=== PATIENT | female | born 1940 | race Caucasian/White ===

== ENCOUNTER 2016-06-27 22:38 | Inpatient (IN) | payer OTHER ==
[~2016-06-27] VITALS: Ht 165.1 cm; Wt 60.8 kg
--- NOTE | 2016-06-27 22:48 | NUR ---
PER PT STARTED VOMITING LAST NIGHT, APPEARS VERY UNCOMF IN TRIAGE, TACHYPNEIC REPORTS DOES NOT FEEL WELL. HAD 3 BM MOVEMENTS , LOTS OF VOMITING
--- NOTE | 2016-06-27 22:54 | ED GI/GU/ABDOMINAL COMPLAINT ---
History of Present Illness General Chief Complaint: Nausea, Vomiting, Diarrhea Stated Complaint: NVD Source: patient, family Exam Limitations: no limitations Vital Signs & Intake/Output Vital Signs & Intake/Output Vital Signs Date Time Temp Pulse Resp B/P Pulse O2 O2 Flow FiO2 Ox Delivery Rate 06/27 2337 Room Air 06/27 2249 98.3 60 28 162/78 97 Room Air ED Intake and Output 06/28 0000 06/27 1200 Intake Total 1000 Output Total Balance 1000 Intake, IV 1000 Allergies Coded Allergies: No Known Allergies (06/27/16) Reconcile Medications No Known Home Medications Triage Note: PER PT STARTED VOMITING LAST NIGHT, APPEARS VERY UNCOMF IN TRIAGE, TACHYPNEIC REPORTS DOES NOT FEEL WELL. HAD 3 BM MOVEMENTS , LOTS OF VOMITING Triage Nurses Notes Reviewed? yes ? n Is pt currently ? No Onset: Gradual Duration: day(s):, waxing and waning Quality/Severity: cramping Location: generalized abdomen Radiation: no radiation Activities at Onset: none Prior Abdominal Problems: none Modifying Factors: Worsens With: vomiting. Associated Symptoms: abdominal pain, nausea/vomiting HPI: 75-year-old woman in prior good health presents with vomiting since 3 AM. She notes that she feels nauseous. She had a few episodes of mild diarrhea. She states that she has no significant abdominal pain. She states, "I've been vomiting uncontrollably and can't keep anything down." She noted mild dysuria but no polyuria. She is otherwise well and has no chest pain shortness of breath fever or syncopal symptoms. Past History Travel History Traveled to [place] past 21 day No Medical History Any Pertinent Medical History? see below for history Neurological: NONE EENT: NONE Cardiovascular: hypertension Respiratory: NONE Gastrointestinal: NONE Hepatic: NONE Renal: KIDNEY SURG 2002 Musculoskeletal: NONE Psychiatric: NONE Endocrine: NONE Blood Disorders: NONE Surgical History Surgical History: hysterectomy, nephrectomy Psychosocial History What is your primary language Syriac Tobacco Use: Never used Family History Hx Contributory? No Review of Systems Review of Systems Constitutional: Reports: no symptoms. EENTM: Reports: no symptoms. Respiratory: Reports: no symptoms. Cardiovascular: Reports: no symptoms. GI: Reports: no symptoms. Genitourinary: Reports: no symptoms. Musculoskeletal: Reports: no symptoms. Skin: Reports: no symptoms. Neurological/Psychological: Reports: no symptoms. Hematologic/Endocrine: Reports: no symptoms. Immunologic/Allergic: Reports: no symptoms. All Other Systems: Reviewed and Negative Physical Exam Physical Exam General Appearance: well developed/nourished, mild distress, moderate distress Head: atraumatic, normal appearance Eyes: Bilateral: normal appearance. Ears, Nose, Throat, Mouth: hearing grossly normal Neck: normal inspection, supple, full range of motion Respiratory: normal breath sounds, chest non-tender, no respiratory distress, quiet respiration, lungs clear Cardiovascular: regular rate/rhythm Gastrointestinal: normal bowel sounds, soft, non-tender, no organomegaly Back: normal inspection Extremities: normal range of motion Neurologic/Psych: no motor/sensory deficits, awake, alert, oriented x 3 Core Measures ACS in differential dx? No Severe Sepsis Present: No Septic Shock Present: No Progress Differential Diagnosis: suction versus gastroenteritis versus GERD versus ulcers versus other. Plan of Care: Orders Procedure Date/time Status Nothing by Mouth 06/28 B Active LACTIC ACID 06/28 0158 Active Patient Data 06/28 0047 Active Add-on Test (ER Only) 06/28 0045 Active Saline Lock 06/28 0020 Active Misc Message 06/28 0020 Active ED Holding Orders 06/28 0020 Active Vital Signs 06/28 0020 Active Code Status 06/28 0020 Active Admit to inpatient 06/28 0019 Active URINE OSMOLALITY 06/28 0010 Active URINE LYTES, SPOT 06/28 0010 Active Intake & Output 06/27 2315 Active SERUM OSMOLALITY 06/27 2305 Active URINALYSIS 06/27 2258 Complete PARTIAL THROMBOPLASTIN TIME 06/27 2258 Complete PROTHROMBIN TIME 06/27 2258 Complete LACTIC ACID 06/27 2258 Complete TROPONIN LEVEL 06/27 224 Active LIPASE 06/27 2245 Active HEPATIC FUNCTION PANEL 06/27 2245 Active CBC WITHOUT DIFFERENTIAL 06/27 2244 Complete BASIC METABOLIC PANEL 06/27 224 Active AMYLASE 06/27 2245 Active EKG 06/27 2245 Active Laboratory Tests 06/28/16 0010: Urine Color YEL, Urine Clarity CLDY H, Urine pH 7.5, Ur Specific [place] 1.015, Urine Protein NEG, Urine Ketones 40 H, Urine Nitrite POS H, Urine Bilirubin NEG, Urine Urobilinogen 0.2, Ur Leukocyte Esterase MOD H, Ur Microscopic SEDIMENT EXAMINED, Urine RBC 5-10 H, Urine WBC 5-10 H, Ur Epithelial Cells FEW , Urine Hemoglobin MOD H, Urine Glucose NEG 06/28/16 0010: Urine Osmolality Pending, Ur Random Creatinine Pending, Ur Random Sodium Pending , Ur Random Potassium Pending, Fraction Sodium Excret Pending 06/27/16 2305: Lactic Acid 1.7 06/27/16 2305: Anion Gap 13, Estimated GFR > 60, BUN/Creatinine Ratio 18.6, Glucose 126 H, Serum Osmolality Pending, Calcium 10.6 H, Total Bilirubin 2.3 H, Direct Bilirubin 0.3, AST 34, ALT 33, Alkaline Phosphatase 98, Troponin I < 0.01, Total Protein 6.6, Albumin 4.3, Amylase 71, Lipase 153, PT 12.4, INR 1.18, APTT 30, CBC w Diff MAN DIFF ORDERED, RBC 4.55, MCV 86.0, MCH 29.6, RDW 14.0, MPV 9.2, Gran % 88.7 H, Lymphocytes % 7.5 L, Monocytes % 1.9, Eosinophils % 0, Basophils % 1.9, Absolute Granulocytes 8.4 H, Absolute Lymphocytes 0.7 L, Absolute Monocytes 0.2, Absolute Eosinophils 0, Absolute Basophils 0.2, Platelet Estimate ADEQUATE, Normocytic RBCs VERIFIED, Normochromic RBCs VERIFIED, PUBS MCHC 34.4 Diagnostic Imaging: Viewed by Me: CT Scan. Discussed w/RAD: CT Scan. Radiology Impression: abd/pelvic ct... no acute disease... full report below. Initial ED EKG: normal axis, normal intervals, normal p-waves, normal QRS complex, normal sinus rhythm Comments: PATIENT: JEFFREY MEYER PRESENT AGE: 75 PATIENT ACCOUNT NO: [id number] : 39 LOCATION: [facility] ORDERING PHYSICIAN: ERIN CHERY MD SERVICE DATE: 06/27/16 EXAM TYPE: CAT - CT ABD & PELVIS W/O IV CONTRAS EXAMINATION: CT ABDOMEN AND PELVIS WITHOUT CONTRAST CLINICAL INFORMATION: Abdominal pain, vomiting COMPARISON: None TECHNIQUE: Multidetector volumetric imaging was performed from the superior aspect of the liver through the pubic symphysis. Sagittal and coronal reformatted images were obtained on the technologist's workstation. DLP: 239.5 to mGy-cm FINDINGS: LUNG BASES: Lung bases demonstrate curvilinear atelectasis. LIVER, GALLBLADDER, AND BILIARY TREE: The liver is normal in size, shape, and attenuation. There is a 2.4 cm inferior right hepatic cyst. A subcentimeter hypodense lesion at the dome of the right hepatic lobe is too small to characterize. No biliary ductal dilatation is present. The gallbladder is unremarkable with no evidence of radiopaque gallstones, gallbladder wall thickening, or obvious pericholecystic inflammatory changes. PANCREAS: Unremarkable. SPLEEN: Enlarged, measuring approximately 15 cm in craniocaudal dimension. ADRENAL GLANDS: Unremarkable. KIDNEYS AND URETERS: Patient is status post left nephrectomy. The right kidney appears unremarkable, without hydronephrosis or obstructing calculus. BLADDER: Unremarkable. GASTROINTESTINAL TRACT: Colonic diverticulosis is noted. The small and large bowel are otherwise unremarkable without evidence of obstruction or pericolonic inflammatory change. The appendix appears nondilated. ABDOMINAL WALL: No significant hernia is appreciated. LYMPH NODES: No lymphadenopathy is seen, though assessment is somewhat limited in the absence of intravenous contrast. VASCULAR: There is atherosclerotic calcification along the aorta and iliac arteries. PELVIC VISCERA: Patient appears status post hysterectomy. OSSEOUS STRUCTURES: Mild degenerative changes are present in the spine. IMPRESSION: 1. No acute findings identified in the abdomen/pelvis. 2. Splenomegaly. 3. Status post left nephrectomy. 4. Colonic diverticulosis. DICTATED BY: PRADEEP JOSE MD DATE/TIME DICTATED:06/27/162353 CLINICAL EXERCISE SPECIALIST:JORGE DATE/TIME TRANSCRIBED:06/27/162353 CONFIDENTIAL, DO NOT COPY WITHOUT APPROPRIATE AUTHORIZATION. <Electronically signed in Other Vendor System> SIGNED BY: PRADEEP JOSE MD 06/28/16 0010 Departure Departure Disposition: STILL A PATIENT Condition: Stable Clinical Impression Primary Impression: Abdominal pain Secondary Impressions: Hyponatremia, Nausea and vomiting Referrals: PATIENT HAS NO PRIMARY CARE DR (PCP/Family) Departure Forms: Customer Survey General Discharge Information Prescriptions: Current Visit Scripts No Known Home Medications Admission Note Spoke With: CYRUS CERVANTES MD Documentation of Exam: Documentation of any treatments & extenuating circumstances including Concerns Regarding Discharge (functional status, medication knowledge or non-compliance, living conditions, etc.) that warrant an admission rather than observation: Patient with nausea vomiting most likely due to viral syndrome. Awaiting urinalysis. Sodium of 119 with a low chloride consistent with hypovolemic hyponatremia. Patient merits admission for IV fluids and electrolyte correction. Critical Care Note Critical Care Note Critical Care Time: 30-74 min
--- NOTE | 2016-06-27 22:55 | NUR ---
APPRECIATED TRIAGE NOTE, PT TO ROOM 4
[2016-06-27 23:13] LABS: ABSOLUTE BASOPHIL COUNT 0.2 /CUMM (0.0-0.2); ABSOLUTE EOSINOPHIL COUNT 0 /CUMM (0.0-0.7); ABSOLUTE GRANULOCYTE CT 8.4 /CUMM (1.4-6.5); ABSOLUTE LYMPH COUNT 0.7 /CUMM (1.2-3.4); ABSOLUTE MONOCYTE COUNT 0.2 /CUMM (0.10-0.60); BASOPHIL % 1.9 % (0.0-2.0); EOSINOPHIL % 0 % (0-5); GRANULOCYTE % 88.7 % (42.2-75.2); HEMATOCRIT 39.2 % (37-47); MEAN CORPUSCULAR HGB 29.6 PG (27.0-31.0); MEAN CORPUSCULAR HGB CONC 34.4 G/DL (33.0-37.0); MEAN PLATELET VOLUME 9.2 FL (7.4-10.4); PLATELET COUNT 164 /CUMM (130-400); RED BLOOD CELL CT 4.55 /CUMM (4.20-5.40); WHITE BLOOD CELL COUNT 9.5 /CUMM (4.8-10.8)
--- NOTE | 2016-06-27 23:14 | NUR ---
IV ESTABLISHED #20 RAC. NS LITER #1 INFUSING NOW. MEDICATED WITH ZOFRAN PER ORDER (SEE EMAR).
[2016-06-27 23:22] LABS: PT 12.4 SEC (9.4-12.5); PTT 30 SEC (25-37)
--- NOTE | 2016-06-27 23:22 | NUR ---
PT MEDICATED WITH PROTONIX WELL PER EMAR. PT LESS TREMULOUS NOW. APPEARS MORE COMFORTABLE. DENIES NAUSEA.
--- NOTE | 2016-06-27 23:37 | NUR ---
PT TO CAT SCAN VIA STRETCHER
--- NOTE | 2016-06-27 23:50 | NUR ---
CRITICAL TEST RESULTS [id number] JEFFREY MEYER 75 F TESTS AND RESULTS: SODIUM 119 Results received and read back by: STANLEY SHER Results received date and time: 06/27/16 0200 The following provider was notified of the results, and read the results back: Notified date and time: 06/27/16 at 2350
--- NOTE | 2016-06-28 00:08 | NUR ---
PT BACK FROM CAT SCAN
--- NOTE | 2016-06-28 00:10 | CT SCAN REPORT ---
EXAMINATION: CT ABDOMEN AND PELVIS WITHOUT CONTRAST CLINICAL INFORMATION: Abdominal pain, vomiting COMPARISON: None TECHNIQUE: Multidetector volumetric imaging was performed from the superior aspect of the liver through the pubic symphysis. Sagittal and coronal reformatted images were obtained on the technologist's workstation. DLP: 239.5 to mGy-cm FINDINGS: LUNG BASES: Lung bases demonstrate curvilinear atelectasis. LIVER, GALLBLADDER, AND BILIARY TREE: The liver is normal in size, shape, and attenuation. There is a 2.4 cm inferior right hepatic cyst. A subcentimeter hypodense lesion at the dome of the right hepatic lobe is too small to characterize. No biliary ductal dilatation is present. The gallbladder is unremarkable with no evidence of radiopaque gallstones, gallbladder wall thickening, or obvious pericholecystic inflammatory changes. PANCREAS: Unremarkable. SPLEEN: Enlarged, measuring approximately 15 cm in craniocaudal dimension. ADRENAL GLANDS: Unremarkable. KIDNEYS AND URETERS: Patient is status post left nephrectomy. The right kidney appears unremarkable, without hydronephrosis or obstructing calculus. BLADDER: Unremarkable. GASTROINTESTINAL TRACT: Colonic diverticulosis is noted. The small and large bowel are otherwise unremarkable without evidence of obstruction or pericolonic inflammatory change. The appendix appears nondilated. ABDOMINAL WALL: No significant hernia is appreciated. LYMPH NODES: No lymphadenopathy is seen, though assessment is somewhat limited in the absence of intravenous contrast. VASCULAR: There is atherosclerotic calcification along the aorta and iliac arteries. PELVIC VISCERA: Patient appears status post hysterectomy. OSSEOUS STRUCTURES: Mild degenerative changes are present in the spine. IMPRESSION: 1. No acute findings identified in the abdomen/pelvis. 2. Splenomegaly. 3. Status post left nephrectomy. 4. Colonic diverticulosis.
--- NOTE | 2016-06-28 00:14 | NUR ---
URINE SAMPLE SENT TO LAB
--- NOTE | 2016-06-28 00:58 | History & Physical ---
TIERRA WEAVER,FER 06/28/16 0057: General Information and HPI MD Statement: I have seen and personally examined JEFFREY MEYER and documented this H&P. The patient is a 75 year old F who presented with a patient stated chief complaint of [throwing up, diarrhea and I only have one kidney]. Source of Information: patient History of Present Illness: Patient is a 75 old pleasant lady who was brought into the ED by her neighbor due to several episode of vomiting and diarrhea for two days. Patient reported eating left over food (marinara sauce with pasta) the night before. Vomiting was associated with cramping and feeling 'edginess' on the upper left and right abdomen but denies any abdominal pain. Reports blood in the vomit, and appeared as dark and old blood. Patient had 3-4 more episodes of vomiting afterwards but those were clear without blood. Denies having such episode of extensive vomiting in the past. Denies heartburn but reports frequent hiccups. Patient denies fever, reported chills earlier in the ED which is now resolved. She also reports one episode of noticing blood in the urine on Tuesday morning which was resolved. Patient reports she has generalized weakness, denies SOB, chest pain, palpitations. she has had poor oral intake over the past few days. Her PMH is significant for nephrectomy (with Dx of RCC in 2011). On note, patient was prescribed amoxicillin about 3 months ago for a dental procedure. She requires dental procedures almost 3-4 times a year and every time he receives antibiotics prophylactically. Allergies/Medications Allergies: Coded Allergies: No Known Allergies (06/27/16) Home Med list Aspirin (Aspirin*) 325 MG TABLET 1 TAB PO DAILY HEART (Reported) Atenolol 25 MG TABLET 1 TAB PO DAILY BLOOD PRESSURE (Reported) Atorvastatin Calcium (Lipitor) 20 MG TABLET 1 TAB PO DAILY CHOLESTEROL ( Reported) Benazepril/Hydrochlorothiazide (Benazepril-Hctz 20-12.5 MG Tab) 20 MG-12.5 MG TABLET 1 TAB PO DAILY BLOOD PRESSURE (Reported) Past History Travel History Traveled to [place] past 21 day No Medical History Neurological: NONE EENT: NONE Cardiovascular: hypertension Respiratory: NONE Gastrointestinal: NONE Hepatic: NONE Renal: left nephrectomy 2011 Musculoskeletal: NONE Psychiatric: NONE Endocrine: NONE Blood Disorders: NONE Surgical History Surgical History: hysterectomy, nephrectomy, left side Past Family/Social History Psychosocial History Where do you live? Home Who Do You Live With? self Services at Home: None Primary Language: Malaysian Smoking Status: Never Smoked ETOH Use: occasional use Functional Ability ADLs Independent: dressing, eating, toileting, bathing. Ambulation: independent IADLs Independent: shopping, housework, finances, food prep, telephone, transportation , medication admin. Review of Systems Review of Systems Constitutional: Reports: chills, malaise, weakness. Denies: fever. EENTM: Reports: no symptoms. Cardiovascular: Denies: chest pain, palpitations, peripheral edema, syncope. Respiratory: Denies: cough, short of breath, sputum production, wheezing. GI: Reports: diarrhea, nausea, bloody stool, vomiting. Denies: abdominal pain, melena. Genitourinary: Reports: dysuria, frequency, hematuria. Denies: pain. Musculoskeletal: Denies: back pain, joint pain, joint swelling. Skin: Reports: no symptoms. Neurological/Psychological: Reports: confusion. Denies: headache, numbness, weakness (feels being spaced out). Hematologic/Endocrine: Reports: no symptoms. Exam & Diagnostic Data Last 24 Hrs of Vital Signs/I&O Vital Signs Date Time Temp Pulse Resp B/P Pulse O2 O2 Flow FiO2 Ox Delivery Rate 06/28 0300 98.7 53 20 128/56 97 Room Air 06/28 0145 98.5 66 20 148/72 98 Room Air 06/27 2337 Room Air 06/27 2249 98.3 60 28 162/78 97 Room Air Intake & Output 06/28 0800 06/28 0000 06/27 1600 Intake Total 1000 Output Total Balance 1000 Intake, IV 1000 Physical Exam General Appearance Alert, Oriented X3, Cooperative, No Acute Distress, slightly confused and forgetful Skin No Rashes, No Breakdown, No Significant Lesion HEENT Atraumatic, PERRLA, EOMI, dry mucous membranes Neck Supple, No JVD Cardiovascular Regular Rate, Normal S1, Normal S2 Lungs Clear to Auscultation, Normal Air Movement Abdomen Normal Bowel Sounds, Soft, No Tenderness Neurological Normal Speech, Strength at 5/5 X4 Ext, Normal Tone, Sensation Intact, Cranial Nerves 3-12 NL Extremities No Clubbing, No Cyanosis, No Edema, Normal Pulses Vascular Normal Pulses, Pulses Symmetrical Last 24 Hrs of Labs/Fredrick: Laboratory Tests 06/28/16 0600: PTH Intact Cancelled 06/28/16 0340: Anion Gap 6, Estimated GFR > 60, BUN/Creatinine Ratio 15.7, TSH 0.775, Free T4 1.05, PTH Intact 144.4 H 06/28/16 0136: Lactic Acid 0.9 06/28/16 001: Urine Color YEL, Urine Clarity CLDY H, Urine pH 7.5, Ur Specific [place] 1.015, Urine Protein NEG, Urine Ketones 40 H, Urine Nitrite POS H, Urine Bilirubin NEG, Urine Urobilinogen 0.2, Ur Leukocyte Esterase MOD H, Ur Microscopic SEDIMENT EXAMINED, Urine RBC 5-10 H, Urine WBC 5-10 H, Ur Epithelial Cells FEW , Urine Hemoglobin MOD H, Urine Glucose NEG 06/28/16 0010: Urine Osmolality 528, Ur Random Creatinine 67.4, Ur Random Sodium 66, Ur Random Potassium 123.5, Fraction Sodium Excret 0.6 06/27/16 2305: Lactic Acid 1.7 06/27/16 2305: Anion Gap 13, Estimated GFR > 60, BUN/Creatinine Ratio 18.6, Glucose 126 H, Serum Osmolality 256 L, Calcium 10.6 H, Total Bilirubin 2.3 H, Direct Bilirubin 0.3, AST 34, ALT 33, Alkaline Phosphatase 98, Troponin I < 0.01, Total Protein 6.6, Albumin 4.3, Amylase 71, Lipase 153, 25-OH Vitamin D Total 22.9 L, PTH Intact 122.8 H, PT 12.4, INR 1.18, APTT 30, CBC w Diff MAN DIFF ORDERED, RBC 4.55, MCV 86.0, MCH 29.6, RDW 14.0, MPV 9.2, Gran % 88.7 H, Lymphocytes % 7.5 L, Monocytes % 1.9, Eosinophils % 0, Basophils % 1.9, Absolute Granulocytes 8.4 H, Absolute Lymphocytes 0.7 L, Absolute Monocytes 0.2, Absolute Eosinophils 0, Absolute Basophils 0.2, Platelet Estimate ADEQUATE, Normocytic RBCs VERIFIED, Normochromic RBCs VERIFIED, PUBS MCHC 34.4 Microbiology 06/28 022 STOOL: Clostridium difficile Toxin A & B - COLB 06/28 014 BLOOD: Blood Culture - RECD 06/28 135 BLOOD: Blood Culture - RECD 06/28 9 URINE ROUT: Urine Culture - RECD Assessment/Plan Assessment: Patient is a 75-year-old lady with PMS significant for left RCC and nephrectomy in 2011, hypertension hyperlipidemia, hysterectomy, who has come to the ED due to acute onset nausea vomiting and diarrhea. Patient also has noticed blood in the vomit as well as blood in the urine, dysuria and frequency. Workup in the ED showed profound hyponatremia of 119, elevated calcium of 10.6, elevated total bilirubin of 2.3 with normal direct bilirubin, elevated PTH. UA is positive for ketones, nitrite, leukocyte esterase, RBCs, white BCs, hemoglobin. Problem list and plan: Hyponatremia Possibly due to GI loss as well as chronic diuretic use. Patient appeared hypothalamic on admission. urine osmolality is elevated however not reliable as the patient is on HCTZ. However patient has not responded to IV normal saline, therefore SIADH needs to be ruled out. * Check orthostats * Continue monitoring sodium every 4 hours * Continue IV normal saline * Follow-up endocrinology consult in a.m. * Follow-up nephrology consult in a.m. Nausea and vomiting and Diarrhea Possible etiologies: infective gastroenteritis (due to food poisoning), C-diff colitis secondary to antibiotic use. * IV fluids * Check stool for C. difficile, stool guaiac * Zofran for nausea UTI Patient reported hematuria, dysuria and frequency. UA indicates UTI. Negative CVA tenderness. Only one episode of chills but no fever, sent blood cultures. * Urine culture * IV ceftriaxone * Sent blood cultures Hypercalcemia and elevated PTH Etiology can be primary hyperparathyroidism * IV fluids * Repeat PTH * Measure 25 hydroxy vitamin D * Follow-up Endo consult Hyperbilirubinemia Possibly due to vomiting. * Repeat LFT in a.m. Diet * Regular DVT prophylaxis * Subcutaneous Lovenox Full code As Ranked By This Provider Problem List: 1. Abdominal pain 2. Nausea and vomiting 3. Hyponatremia Core Measures/Miscellaneous Acute Coronary Syndrome ACS Diagnosis: No Cerebrovascular Accident CVA/TIA Diagnosis: No Congestive Heart Failure CHF Diagnosis: No Venous Thromboembolism VTE Risk Factors: Acute medical illness, Age > 40 VTE Prophylaxis Ordered Inpt: Pharm- Lovenox No Mech VTE prophylaxis d/t: No contraindications No VTE Pharm Prophylaxis d/t: No contraindications VTE Diagnosis: No VTE Type: NONE VTE Confirmed by (Test): NONE Severe Sepsis Severe Sepsis Present: No Septic Shock Septic Shock Present: No Miscellaneous Documentation Attending Case Discussed With: CYRUS CERVANTES MD Primary Care Physician: PATIENT HAS NO PRIMARY CARE DR Patient sees these Specialists Dr. Lynda Rogers, assistant professor in family studies Dr. Jacek Dean, urologist Level of Patient Care: General Medicine GHADA JHAVERI 06/28/16 0300: Resident Review Statement Resident Statement: examined this patient, discussed with tax intern, agreed with tax intern Other Findings: Patient is 75-year-old female with past medical history significant for hypertension, hyperlipidemia, mitral valve repair, history of renal cell carcinoma status post left nephrectomy in 2011 came with chief complaint of nausea or vomiting and diarrhea with weakness since yesterday. Patient admits that she start having nausea and vomiting on Tuesday morning along with 2 episodes of diarrhea resulting dehydration and weakness. She also experiencing some urinary symptoms including burning urination and frequency. She noticed slight hematuria and questionable blood in vomitus also. She denies fever, chills, chest pain, palpitations, dizziness, gait instability but admits that she was spacing out yesterday. She lives at home by herself and is independent in her living room. She is following with assistant professor in family studies Dr. Lynda Rogers and payroll master Dr. Jacek Dean at [facility]. Her vital signs on admission were temperature 98.3, pulse 60, respiratory rate 28, that pressure 162/78 and she was saturating 97% on room air. Admission labs were white cell count 9.5, hemoglobin 13.5, hematocrit 39.2, platelet 164, sodium 119, potassium 3.7, BUN/creatinine 13, creatinine 0.7, calcium 10.6 and corrected 10.4, bilirubin 2.3 with normal AST and ALTs, initial PTH was 122.8 and repeat was 144.4. UA was positive for leukocyte esterase, nitrates, WBC count of 5-10 and RBC 5-10 with moderate hemoglobin Physical examination Alert and oriented but anxious more than confused at times Dry mucous membranes Head atraumatic Neck supple Chest clear to auscultate Heart S1-S2 normal with no added sounds Abdomen soft with normal bowel sounds Extremities no edema or cyanosis Neurological examination negative for any neurological deficit Assessment and plan Patient is 75-year-old female with past medical history significant for hypertension, hyperlipidemia, renal cell carcinoma status post left nephrectomy, mitral valve repair came with chief complaint of diarrhea, vomiting resulted to dehydration and found to be severely hyponatremic on admission labs. Problem list 1. Severe hyponatremia without profound confusion 2. Hyperbilirubinemia 3. History of hypertension and hyper lipidemia 4. Elevated calcium with elevated parathyroid hormone most primary hyperparathyroidism needs to be ruled out 5. UTI with positive urinalysis and symptoms Plan We will admit patient on general medical floor Patient is hypovolemic/dehydrated on clinical examination, low serum osmolality as well as sodium excretion of 66 on urine lites and fraction sodium excretion is 0.6, recent diarrhea and vomiting on diuretics most likely due to renal losses and also GI losses. We will hydrate patient with isotonic normal saline at rate 100 mL per hour and will check sodium every 4 hours. Neuro checks every 4 hours in case of any worsening of her mental status/ worsening hyponatremia will transfer patient to ICU for closer monitoring. We will try to increase her sodium 4-6 mEq in first 24 hours. We will request nephrology evaluation in a.m. Patient was found to have elevated calcium level and parathyroid hormone, repeat PTH was worse than admission labs we will request endocrine evaluation in a.m. for primary hyperparathyroidism. On admission labs patient was found to have hyperbilirubinemia most likely due to her vomiting but we will repeat LFTs in a.m. if remain abnormal we might consider right upper quadrant ultrasound. We will hold her diuretics and will request her recent lab for from her PCP in a.m. we will also confirm her CMR in a.m. Patient has recent history of antibiotic use we will rule out C. difficile. Pharmacological DVT prophylaxis Patient is full code CYRUS CERVANTES 06/28/16 0524: Attending MD Review Statement Attending Statement Attending MD Statement: examined this patient, discuss w/resident/PA/CUSTOMER MANAGEMENT SPECIALIST, agreed w/resident/PA/CUSTOMER MANAGEMENT SPECIALIST, reviewed EMR data (avail), reviewed images, amended to note Attending Assessment/Plan: CC: Nausea, vomiting, diarrhea PMH: HTN, HLD, S/P mitral valve repair, S/P left nephrectomy secondary to RCC, S /P hysterectomy Patient came with recurrent vomiting started yesterday morning associated with nausea and watery diarrhea. She had several episodes of vomiting, first one was dark-colored followed by clear fluid. 3-4 episodes of watery diarrhea no black colored or red colored stools. She denies any abdominal cramping but complains of mild abdominal pain. But endorses urinary burning and irritation, feeling weak and lethargic, dizziness, chills. Patient is slow to respond but complete 14 point ROS noncontributory other than mentioned. It sick contacts, last antibiotics used 3 months back, she ate some pasta with marinara sauce day before but nothing unusual. And has not been eating anything since vomiting started. Vitals: Afebrile, HR 60, RR 20, blood pressure 148/72, saturating 98% on room air. On exam: Slow to respond, some memory deficits but reconnects after requestioning and probing. A O 3, anxious, no acute distress, neck supple, no JVD no, no lymphadenopathy, no thyromegaly, mucosa dry. CVS: S1-S2, RRR. RS: Clear to auscultation bilaterally. Abdomen: Soft, NT, ND, bowel sounds present No CVA tenderness. No focal neurological deficit, no obvious skin rashes or inflammation, no pitting edema lower extremity. Labs: CBC shows granulocyte 88% but WBC 9.5, sodium 119, chloride 84, creatinine 0.7, calcium 10.6, UA positive for ketone, nitrites, leukocyte esterase, urine osmolality 528, serum osmolality 256, total bilirubin 2.3, direct bilirubin 0.3, AST 34, ALT 33, albumin 4.3. CT abdomen and pelvis without IV contrast:No acute findings identified in the abdomen/pelvis. Splenomegaly. Status post left nephrectomy. Colonic diverticulosis. A and P #1 hyponatremia: Patient appears hypovolemic on examination. This appears hypotonic hyponatremia probably secondary to volume loss with GI symptoms vomiting and diarrhea; patient currently on HCTZ which may aggravate the problem as well as change urine electrolytes for evaluation. Continue IV normal saline at 100 mL per hour, check sodium every 4 hourly, consult nephrology in a.m. obtain TSH, a.m. cortisol, d/c ACEI and HCTZ #2 UTI: Patient has symptoms of burning and irritation urine along with UA positive for UTI. No CVA tenderness on exam. Get urine cultures, continue IV ceftriaxone for now #3 patient had an episode of chills: Obtain blood cultures #4 hypercalcemia : Uncertain etiology, obtain PTH, 25 hydroxy vitamin D, continue IV hydration for now #5 vomiting and diarrhea: Most likely viral etiology for gastroenteritis, CT abdomen and pelvis unremarkable, patient get takes by mouth antibiotics for dental procedures last on 3 months back, check C. difficile. #6 PT evaluation in a.m. #7 patient's bilirubin is mildly elevated, recheck LFTs in a.m., if persistently elevated consider right upper quadrant ultrasound. #8 DVT prophylaxis with Lovenox
--- NOTE | 2016-06-28 01:25 | NUR ---
PT HAS BED #216-2
--- NOTE | 2016-06-28 01:45 | NUR ---
REPORT CALLED TO DEMARCO REED
[2016-06-28 03:00] VITALS: BP 128/56
[2016-06-28] MEDS ORDERED: ASPIRIN325 M2 PO (03:02)
[2016-06-28] MEDS ORDERED: ATENOLOL25 M1 PO (03:02)
[2016-06-28] MEDS ORDERED: LIPITOR20 M2 PO (03:03)
[2016-06-28] MEDS ORDERED: BENAZEPRIL-HCT1 EAC2 PO (03:03)
--- NOTE | 2016-06-28 05:06 | NUR ---
0300 NEW ADMISSION SETTLED INTO RM 216-2. PT IS AOX3. CALL ANDERSEN IN REACH. SEE ORDERS.
--- NOTE | 2016-06-28 05:25 | Admission Certification ---
Admission Certification Certification Statement - As attending physician, I certify that at the time of - admission, based on clinical presentation, severity of - symptoms, need for further diagnostic testing and - therapeutic interventions, and risk of adverse outcomes - without in-hospital treatment, in my clinical assessment, - this patient requires an acute hospital stay for a minimum - of two nights or longer. I have also considered psychsocial - factors such as support system, advanced age, financial - issues, cognitive issues, and failed out-patient treatments, - past re-admission history, safety of patient, and lack of - compliance as applicable. Specific rationale supporting this admission is: Hyponatremia, ? Gastroenteritis
[2016-06-28 08:35] VITALS: BP 128/60
--- NOTE | 2016-06-28 13:01 | Cons- Endocrinology ---
General Information and HPI Consulting Request Date of Consult: 06/28/16 Requested By: medical team Reason for Consult: evaluation of hyperparathyroidism Source of Information: patient, old records Exam Limitations: no limitations History of Present Illness: 75 old pleasant female with PMH significant for nephrectomy (with Dx of RCC in 2011), was brought into the ED by her neighbor due to several episode of vomiting and diarrhea since Tuesday morning. In ER. blood work showed calcium 10.6, PTH 122.8, sodium 119, osmolality 256, 25 OH vitamin D 22.9, urine sodium 66 and urine osmolality 528. I was asked to see her for evaluation of abnormal calcium and PTH. She denied taking any TUMs. She doesn't have any hx of renal stones. At home, she was on Benazpril/HCTZ. Currently she is on NS at 100 ml/hour. Repeat Sodium 120, K 3.4, calcium 9.3 and albumin 3.0. Allergies/Medications Allergies: Coded Allergies: No Known Allergies (06/27/16) Home Med List: Aspirin (Aspirin*) 325 MG TABLET 1 TAB PO DAILY HEART (Reported) Atenolol 25 MG TABLET 1 TAB PO DAILY BLOOD PRESSURE (Reported) Atorvastatin Calcium (Lipitor) 20 MG TABLET 1 TAB PO DAILY CHOLESTEROL ( Reported) Benazepril/Hydrochlorothiazide (Benazepril-Hctz 20-12.5 MG Tab) 20 MG-12.5 MG TABLET 1 TAB PO DAILY BLOOD PRESSURE (Reported) Review of Systems Review of Systems Constitutional: Reports: see HPI. Cardiovascular: Denies: chest pain, palpitations. Respiratory: Denies: short of breath. GI: Reports: diarrhea, vomiting. Genitourinary: Denies: dysuria. Hematologic/Endocrine: Denies: polyuria, polydipsia. Past History Travel History Traveled to [place] past 21 day No Medical History Blood Transfusion Hx: No Neurological: migraine EENT: NONE Cardiovascular: hypertension, hyperlipidemia Respiratory: NONE Gastrointestinal: diverticulitis Hepatic: NONE Renal: left nephrectomy 2011 Musculoskeletal: ARTHRITIS Psychiatric: NONE Endocrine: NONE Blood Disorders: NONE Cancer(s): renal cancer [employer]/Reproductive: fibroid, HYSTERECTOMY Surgical History Surgical History: hysterectomy, nephrectomy, left side Psychosocial History Where Do You Live? Home Who Do You Live With? self Services at Home: None Primary Language: Spanish Smoking Status: Never Smoked ETOH Use: occasional use Functional Ability ADLs Independent: dressing, eating, toileting, bathing. Ambulation: independent IADLs Independent: shopping, housework, finances, food prep, telephone, transportation , medication admin. Exam & Diagnostic Data Last 24 Hrs of Vital Signs/I&O Vital Signs Date Time Temp Pulse Resp B/P Pulse O2 O2 Flow FiO2 Ox Delivery Rate 06/28 0835 98.0 61 20 128/60 94 Room Air 06/28 0300 98.7 53 20 128/56 97 Room Air 06/28 0145 98.5 66 20 148/72 98 Room Air 06/27 2337 Room Air 06/27 2249 98.3 60 28 162/78 97 Room Air Intake & Output 06/28 1600 06/28 0800 06/28 0000 Intake Total 400 1000 Output Total 650 Balance -250 1000 Intake, IV 400 1000 Intake, Oral 0 Number 0 Bowel Movements Output, Urine 650 Patient 134 lb Weight Physical Exam General Appearance: mild distress Neck: normal inspection Respiratory: lungs clear Cardiovascular: regular rate/rhythm Gastrointestinal: soft Extremities: no edema Labs/Fredrick Results: Laboratory Tests 06/28 06/28 06/28 06/28 1130 0700 0600 0340 Chemistry Sodium (137 - 145 mmol/L) Pending 120 L 119 *L Potassium (3.5 - 5.1 mmol/L) Pending 3.4 L 3.6 Chloride (98 - 107 mmol/L) Pending 91 L 90 L Carbon Dioxide (22 - 30 mmol/L) Pending 22 23 Anion Gap (5 - 16) Pending 8 6 BUN (7 - 17 mg/dL) Pending 10 11 Creatinine (0.5 - 1.0 mg/dL) Pending 0.7 0.7 Estimated GFR (>60 ml/min) > 60 > 60 BUN/Creatinine Ratio (7 - 25 %) Pending 14.3 15.7 Uric Acid (2.5 - 6.2 mg/dL) 3.0 Calcium (8.4 - 10.2 mg/dL) 9.3 Total Bilirubin (0.2 - 1.3 mg/dL) 1.4 H Direct Bilirubin (< 0.4 mg/dL) 0.4 AST (14 - 36 U/L) 26 ALT (9 - 52 U/L) 26 Alkaline Phosphatase (<127 U/L) 68 Total Protein (6.3 - 8.2 g/dL) 5.0 L Albumin (3.5 - 5.0 g/dL) 3.0 L TSH (0.270 - 4.200 uIU/mL) 0.775 Free T4 (0.78 - 2.44 ng/dL) 1.05 PTH Intact (13.8 - 85 pg/ml) Cancelled 144.4 H Cortisol AM Sample (4.46 - 22.7 ug/dL) 18.5 06/28 06/28 06/28 06/27 0136 0010 0010 2305 Chemistry Lactic Acid (0.7 - 2.1 mmol/L) 0.9 1.7 Urines Urine Color (YEL,AMB,STR) YEL Urine Clarity (CLEAR) CLDY H Urine pH (5.0 - 8.0) 7.5 Ur Specific [place] (1.001 - 1.035) 1.015 Urine Protein (NEG,<30 MG/DL) NEG Urine Ketones (NEG) 40 H Urine Nitrite (NEG) POS H Urine Bilirubin (NEG) NEG Urine Urobilinogen (0.1 - 1.0 EU/dl) 0.2 Ur Leukocyte Esterase (NEG) MOD H Ur Microscopic SEDIMENT EXAMINED Urine RBC (0 - 5 /HPF) 5-10 H Urine WBC (0 - 2 /HPF) 5-10 H Ur Epithelial Cells (NONE,FEW) FEW Urine Hemoglobin (NEG) MOD H Urine Osmolality (300 - 1000 MOSM/KG) 528 Ur Random Creatinine (mg/dL) 67.4 Ur Random Sodium (30 - 90 mmol/L) 66 Ur Random Potassium (mmol/L) 123.5 Fraction Sodium Excret (<1% %) 0.6 Urine Glucose (N MG/DL) NEG 06/27 2305 Chemistry Sodium (137 - 145 mmol/L) 119 *L Potassium (3.5 - 5.1 mmol/L) 3.7 Chloride (98 - 107 mmol/L) 84 L Carbon Dioxide (22 - 30 mmol/L) 22 Anion Gap (5 - 16) 13 BUN (7 - 17 mg/dL) 13 Creatinine (0.5 - 1.0 mg/dL) 0.7 Estimated GFR (>60 ml/min) > 60 BUN/Creatinine Ratio (7 - 25 %) 18.6 Glucose (65 - 99 mg/dL) 126 H Serum Osmolality (285 - 295 MOSM/KG) 256 L Calcium (8.4 - 10.2 mg/dL) 10.6 H Total Bilirubin (0.2 - 1.3 mg/dL) 2.3 H Direct Bilirubin (< 0.4 mg/dL) 0.3 AST (14 - 36 U/L) 34 ALT (9 - 52 U/L) 33 Alkaline Phosphatase (<127 U/L) 98 Troponin I (< 0.11 ng/ml) < 0.01 Total Protein (6.3 - 8.2 g/dL) 6.6 Albumin (3.5 - 5.0 g/dL) 4.3 Amylase (30 - 110 U/L) 71 Lipase (23 - 300 U/L) 153 25-OH Vitamin D Total (30 - 100 ng/ml) 22.9 L PTH Intact (13.8 - 85 pg/ml) 122.8 H Coagulation PT (9.4 - 12.5 SEC) 12.4 INR (0.90 - 1.19) 1.18 APTT (25 - 37 SEC) 30 Hematology CBC w Diff MAN DIFF ORDERED WBC (4.8 - 10.8 /CUMM) 9.5 RBC (4.20 - 5.40 /CUMM) 4.55 Hgb (12.0 - 16.0 G/DL) 13.5 Hct (37 - 47 %) 39.2 MCV (81.0 - 99.0 FL) 86.0 MCH (27.0 - 31.0 PG) 29.6 RDW (11.5 - 14.5 %) 14.0 Plt Count (130 - 400 /CUMM) 164 MPV (7.4 - 10.4 FL) 9.2 Gran % (42.2 - 75.2 %) 88.7 H Lymphocytes % (20.5 - 51.1 %) 7.5 L Monocytes % (1.7 - 9.3 %) 1.9 Eosinophils % (0 - 5 %) 0 Basophils % (0.0 - 2.0 %) 1.9 Absolute Granulocytes (1.4 - 6.5 /CUMM) 8.4 H Absolute Lymphocytes (1.2 - 3.4 /CUMM) 0.7 L Absolute Monocytes (0.10 - 0.60 /CUMM) 0.2 Absolute Eosinophils (0.0 - 0.7 /CUMM) 0 Absolute Basophils (0.0 - 0.2 /CUMM) 0.2 Platelet Estimate (ADEQUATE) ADEQUATE Normocytic RBCs VERIFIED Normochromic RBCs VERIFIED PUBS MCHC (33.0 - 37.0 G/DL) 34.4 Assessment/Plan Assessment/Plan 75 old pleasant female with PMH significant for nephrectomy (with Dx of RCC in 2011), was brought into the ED by her neighbor due to several episode of vomiting and diarrhea since Tuesday morning. Patient was admitted for severe hyponatremia, mild hypercalcemia, elevated PTH and mild vitamin D deficiency. 1. Hypovalemic Hyponatremia due to GI loss and HCTZ ---agree with the current IVF of NS at 100 ml/hour; ---continue monitor electrolytes every 4-6 hours. 2. Her calcium level has been improving after patient was treated with IVF. ---recommend starting vitamin D 1000 units daily; ---monitor calcium, PTH and 25 OH vitamin D in 6-8 weeks as outpatient. Consult Acknowledgment - Thank you for your consult request.
[2016-06-28 15:50] VITALS: BP 124/62
--- NOTE | 2016-06-28 16:26 | Cons- Nephrology ---
General Information and HPI Consulting Request Date of Consult: 06/28/16 Requested By: PEDRITO RODRÍGUEZ MD Reason for Consult: Hyponatremia Source of Information: patient, old records History of Present Illness: 75-year-old woman admitted late last evening/early this morning with a 1-2 day history of vomiting and diarrhea. She was found to have severe hyponatremia with a serum sodium of 119 rising slightly to 120 early this morning and then 125. Treatment has been with IV normal saline. Renal function appears to be normal with a serum creatinine that has ranged from 0.7-0.9, despite the fact that she is 4 years status post laparoscopic left nephrectomy for cancer. The creatinine values are unchanged from the past. Her only previous serum sodium levels in [facility] were 142 and 143 in 2013 and 2001. It should be noted that one of her outpatient medications is a combination been as a peripheral/ hydrochlorothiazide which she tells me she has been on since a mitral valve repair in 2001. She is unaware of any previous history of hyponatremia. Evaluation thus far has revealed a high urine sodium and osmolality, normal TSH and a.m. cortisol levels. Blood sugar was 126. She denies any headache or visual symptoms and her GI symptoms have now apparently resolved. Past medical history is positive for hypertension, mitral valve repair at [facility] in 2001, left nephrectomy at [facility] in 2011, hysterectomy for fibroids. Outpatient medications: See below Family history negative for any renal disease in either parent or siblings She has no children. Social history: Originally from [place], immigrated to in 1963, is retired with no history of cigarette smoking, alcohol abuse or drug abuse. Never , no children. Lives alone but has a significant other. Allergies/Medications Allergies: Coded Allergies: No Known Allergies (06/27/16) Home Med List: Aspirin (Aspirin*) 325 MG TABLET 1 TAB PO DAILY HEART (Reported) Atenolol 25 MG TABLET 1 TAB PO DAILY BLOOD PRESSURE (Reported) Atorvastatin Calcium (Lipitor) 20 MG TABLET 1 TAB PO DAILY CHOLESTEROL ( Reported) Benazepril/Hydrochlorothiazide (Benazepril-Hctz 20-12.5 MG Tab) 20 MG-12.5 MG TABLET 1 TAB PO DAILY BLOOD PRESSURE (Reported) Review of Systems Review of Systems: Constitutional: Reports: chills, malaise, weakness. Denies: fever. EENTM: Reports: no symptoms. Cardiovascular: Denies: chest pain, palpitations, peripheral edema, syncope. Respiratory: Denies: cough, short of breath, sputum production, wheezing. GI: Reports: diarrhea, nausea, bloody stool, vomiting. Denies: abdominal pain, melena. Genitourinary: Reports: dysuria, frequency, hematuria. Denies: pain. Musculoskeletal: Denies: back pain, joint pain, joint swelling. Skin: Reports: no symptoms. Neurological/Psychological: Reports: confusion. Denies: headache, numbness, weakness (feels being spaced out). Hematologic/Endocrine: Reports: no symptoms. Past History Travel History Traveled to [place] past 21 day No Medical History Blood Transfusion Hx: No Neurological: migraine EENT: NONE Cardiovascular: hypertension, hyperlipidemia Respiratory: NONE Gastrointestinal: diverticulitis Hepatic: NONE Renal: left nephrectomy 2012 Musculoskeletal: ARTHRITIS Psychiatric: NONE Endocrine: NONE Blood Disorders: NONE Cancer(s): renal cancer [employer]/Reproductive: fibroid, HYSTERECTOMY Surgical History Surgical History: hysterectomy, nephrectomy, left side Psychosocial History Where Do You Live? Home Who Do You Live With? self Services at Home: None Primary Language: Faroese Smoking Status: Never Smoked ETOH Use: occasional use Functional Ability ADLs Independent: dressing, eating, toileting, bathing. Ambulation: independent IADLs Independent: shopping, housework, finances, food prep, telephone, transportation , medication admin. Exam & Diagnostic Data Vital Signs and I&O Vital Signs Date Time Temp Pulse Resp B/P Pulse O2 O2 Flow FiO2 Ox Delivery Rate 06/28 1550 98.1 51 20 124/62 95 Room Air 06/28 0835 98.0 61 20 128/60 94 Room Air 06/28 0300 98.7 53 20 128/56 97 Room Air 06/28 0145 98.5 66 20 148/72 98 Room Air 06/27 2337 Room Air 06/27 2249 98.3 60 28 162/78 97 Room Air Intake & Output 06/28 1600 06/28 0400 06/27 1600 06/27 0400 06/26 1600 06/26 0400 Intake Total 400 1000 Output Total 1550 Balance -1150 1000 Intake, IV 400 1000 Intake, Oral 0 Number 0 Bowel Movements Output, Urine 1550 Patient 134 lb Weight Physical Exam: General: Well-developed, pleasant white female in NAD Skin: No rash or jaundice HEENT: Conjunctivae pink, sclerae anicteric, mucous membranes moist Neck: Without masses or thyromegaly, no supraclavicular or cervical adenopathy Chest: Clear to P&A Heart: Regular rate and rhythm without S3 or rub Abdomen: Soft and nontender without palpable masses or organomegaly Extremities: Without cyanosis or edema Neuro: No focal findings, no asterixis or myoclonus Results Pertinent Lab Results: Laboratory Tests 06/28 06/28 06/28 06/28 06/28 1130 0700 0600 0340 0136 Chemistry Sodium (137 - 145 mmol/L) 125 L 120 L 119 *L Potassium (3.5 - 5.1 mmol/L) 4.4 3.4 L 3.6 Chloride (98 - 107 mmol/L) 91 L 91 L 90 L Carbon Dioxide (22 - 30 mmol/L) 24 22 23 Anion Gap (5 - 16) 10 8 6 BUN (7 - 17 mg/dL) 10 10 11 Creatinine (0.5 - 1.0 mg/dL) 0.9 0.7 0.7 Estimated GFR (>60 ml/min) > 60 > 60 > 60 BUN/Creatinine Ratio (7 - 25 %) 11.1 14.3 15.7 Lactic Acid (0.7 - 2.1 mmol/L) 0.9 Uric Acid (2.5 - 6.2 mg/dL) 3.0 Calcium (8.4 - 10.2 mg/dL) 9.3 Total Bilirubin (0.2 - 1.3 mg/dL) 1.4 H Direct Bilirubin (< 0.4 mg/dL) 0.4 AST (14 - 36 U/L) 26 ALT (9 - 52 U/L) 26 Alkaline Phosphatase (<127 U/L) 68 Total Protein (6.3 - 8.2 g/dL) 5.0 L Albumin (3.5 - 5.0 g/dL) 3.0 L TSH (0.270 - 4.200 uIU/mL) 0.775 Free T4 (0.78 - 2.44 ng/dL) 1.05 PTH Intact (13.8 - 85 pg/ml) Cancelled 144.4 H Cortisol AM Sample (4.46 - 22.7 ug/dL) 18.5 06/28 06/28 06/27 0010 0010 2305 Chemistry Lactic Acid (0.7 - 2.1 mmol/L) 1.7 Urines Urine Color (YEL,AMB,STR) YEL Urine Clarity (CLEAR) CLDY H Urine pH (5.0 - 8.0) 7.5 Ur Specific [place] (1.001 - 1.035) 1.015 Urine Protein (NEG,<30 MG/DL) NEG Urine Ketones (NEG) 40 H Urine Nitrite (NEG) POS H Urine Bilirubin (NEG) NEG Urine Urobilinogen (0.1 - 1.0 EU/dl) 0.2 Ur Leukocyte Esterase (NEG) MOD H Ur Microscopic SEDIMENT EXAMINED Urine RBC (0 - 5 /HPF) 5-10 H Urine WBC (0 - 2 /HPF) 5-10 H Ur Epithelial Cells (NONE,FEW) FEW Urine Hemoglobin (NEG) MOD H Urine Osmolality (300 - 1000 MOSM/KG) 528 Ur Random Creatinine (mg/dL) 67.4 Ur Random Sodium (30 - 90 mmol/L) 66 Ur Random Potassium (mmol/L) 123.5 Fraction Sodium Excret (<1% %) 0.6 Urine Glucose (N MG/DL) NEG 06/27 2305 Chemistry Sodium (137 - 145 mmol/L) 119 *L Potassium (3.5 - 5.1 mmol/L) 3.7 Chloride (98 - 107 mmol/L) 84 L Carbon Dioxide (22 - 30 mmol/L) 22 Anion Gap (5 - 16) 13 BUN (7 - 17 mg/dL) 13 Creatinine (0.5 - 1.0 mg/dL) 0.7 Estimated GFR (>60 ml/min) > 60 BUN/Creatinine Ratio (7 - 25 %) 18.6 Glucose (65 - 99 mg/dL) 126 H Serum Osmolality (285 - 295 MOSM/KG) 256 L Calcium (8.4 - 10.2 mg/dL) 10.6 H Total Bilirubin (0.2 - 1.3 mg/dL) 2.3 H Direct Bilirubin (< 0.4 mg/dL) 0.3 AST (14 - 36 U/L) 34 ALT (9 - 52 U/L) 33 Alkaline Phosphatase (<127 U/L) 98 Troponin I (< 0.11 ng/ml) < 0.01 Total Protein (6.3 - 8.2 g/dL) 6.6 Albumin (3.5 - 5.0 g/dL) 4.3 Amylase (30 - 110 U/L) 71 Lipase (23 - 300 U/L) 153 25-OH Vitamin D Total (30 - 100 ng/ml) 22.9 L PTH Intact (13.8 - 85 pg/ml) 122.8 H Coagulation PT (9.4 - 12.5 SEC) 12.4 INR (0.90 - 1.19) 1.18 APTT (25 - 37 SEC) 30 Hematology CBC w Diff MAN DIFF ORDERED WBC (4.8 - 10.8 /CUMM) 9.5 RBC (4.20 - 5.40 /CUMM) 4.55 Hgb (12.0 - 16.0 G/DL) 13.5 Hct (37 - 47 %) 39.2 MCV (81.0 - 99.0 FL) 86.0 MCH (27.0 - 31.0 PG) 29.6 RDW (11.5 - 14.5 %) 14.0 Plt Count (130 - 400 /CUMM) 164 MPV (7.4 - 10.4 FL) 9.2 Gran % (42.2 - 75.2 %) 88.7 H Lymphocytes % (20.5 - 51.1 %) 7.5 L Monocytes % (1.7 - 9.3 %) 1.9 Eosinophils % (0 - 5 %) 0 Basophils % (0.0 - 2.0 %) 1.9 Absolute Granulocytes (1.4 - 6.5 /CUMM) 8.4 H Absolute Lymphocytes (1.2 - 3.4 /CUMM) 0.7 L Absolute Monocytes (0.10 - 0.60 /CUMM) 0.2 Absolute Eosinophils (0.0 - 0.7 /CUMM) 0 Absolute Basophils (0.0 - 0.2 /CUMM) 0.2 Platelet Estimate (ADEQUATE) ADEQUATE Normocytic RBCs VERIFIED Normochromic RBCs VERIFIED PUBS MCHC (33.0 - 37.0 G/DL) 34.4 Assessment/Plan Assessment/Recommendations Assessment: 75-year-old woman with severe hyponatremia which I suspect has developed over more than just 1 or 2 days based on her lack of neurologic symptoms. Although she does give a history of GI losses and poor intake for 1-2 days, she is not clinically severely dehydrated and her serum creatinine remains quite normal, especially in light of the fact that she is status post a left nephrectomy 4-5 years ago. My suspicion is that she does have an element of SIADH or thiazide- induced hyponatremia in combination with a small degree of volume depletion. At the moment, she is correcting a little bit to quickly and this will have to be addressed. Recommendations: 1. Check uric acid level 2. Hold NIRMAL inhibitor/HCTZ 3. For the moment, would change IV to D5W at 75 mL per hour and recheck electrolytes this evening with fluid adjustment as necessary at that time i.e. if serum sodium starts to fall again can then change to half-normal saline at 75 mL per hour. If serum sodium stable or rising, would continue D5W through the night. Thank you. Will follow along with you.
--- NOTE | 2016-06-28 22:00 | PN- Att Addend ---
Attending Addendum Attending Brief Note S: The patient was alert & oriented. Seen and discussed with Nephrology & House Staff. O: VS: Vital Signs Date Time Temp Pulse Resp B/P Pulse O2 O2 Flow FiO2 Ox Delivery Rate 06/28 1550 98.1 51 20 124/62 95 Room Air 06/28 0835 98.0 61 20 128/60 94 Room Air 06/28 0300 98.7 53 20 128/56 97 Room Air 06/28 0145 98.5 66 20 148/72 98 Room Air 06/27 2337 Room Air 06/27 2249 98.3 60 28 162/78 97 Room Air Intake & Output 06/28 1600 06/28 0800 06/28 0000 Intake Total 400 1000 Output Total 900 650 Balance -900 -250 1000 Intake, IV 400 1000 Intake, Oral 0 Number 0 Bowel Movements Output, Urine 900 650 Patient 60.801 kg Weight Current Medications Sig/Jaime Start time Last Medication Dose Route Stop Time Status Admin Acetaminophen 650 MG Q6P PRN 06/28 0230 AC PO Aspirin 325 MG DAILY 06/28 1000 AC 06/28 PO 0939 Atorvastatin Calcium 20 MG DAILY 06/28 1000 AC 06/28 PO 0939 Ceftriaxone Sodium 1,000 MG DAILY 06/28 1000 AC 06/28 IV 0939 Dextrose/Water 1,000 ML Q13H 06/28 1730 AC 06/28 IV 1748 Enoxaparin Sodium 40 MG DAILY 06/28 1000 AC 06/28 SC 0939 Ondansetron HCl 4 MG Q6P PRN 06/28 0230 AC IV Ondansetron HCl 0 .STK-MED ONE 06/27 2310 DC .ROUTE Ondansetron HCl 4 MG ONCE ONE 06/27 2300 DC 06/27 IV 06/27 2301 2313 Pantoprazole Sodium 0 .STK-MED ONE 06/27 2319 DC IV Pantoprazole Sodium 40 MG ONCE ONE 06/27 2300 DC 06/27 IV 06/27 2301 2322 Patient Medication 1 ED .STK-MED ONE 06/28 1415 DC Teaching ED 06/28 1416 Sodium Chloride 1,000 ML Q10H 06/28 0215 PR 06/28 IV 1326 Sodium Chloride 1,000 ML BOLUS ONE 06/27 2300 DC 06/27 IV 06/27 2359 2313 Physical Exam: HEENT: hank- sl dry mucosa Neck: no JVD Chest: clear Cor: RRR, nl S1, S2 w/o murm Laboratory Tests 06/28/16 2037: Anion Gap 7, Estimated GFR 48 L, BUN/Creatinine Ratio 11.8, Uric Acid 4.0 06/28/16 1130: Anion Gap 10, Estimated GFR > 60, BUN/Creatinine Ratio 11.1 06/28/16 0700: Anion Gap 8, Estimated GFR > 60, BUN/Creatinine Ratio 14.3, Uric Acid 3.0, Calcium 9.3, Total Bilirubin 1.4 H, Direct Bilirubin 0.4, AST 26, ALT 26, Alkaline Phosphatase 68, Total Protein 5.0 L, Albumin 3.0 L, Cortisol AM Sample 18.5 06/28/16 0600: PTH Intact Cancelled 06/28/16 0340: Anion Gap 6, Estimated GFR > 60, BUN/Creatinine Ratio 15.7, TSH 0.775, Free T4 1.05, PTH Intact 144.4 H 06/28/16 0136: Lactic Acid 0.9 06/28/16 0010: Urine Color YEL, Urine Clarity CLDY H, Urine pH 7.5, Ur Specific [place] 1.015, Urine Protein NEG, Urine Ketones 40 H, Urine Nitrite POS H, Urine Bilirubin NEG, Urine Urobilinogen 0.2, Ur Leukocyte Esterase MOD H, Ur Microscopic SEDIMENT EXAMINED, Urine RBC 5-10 H, Urine WBC 5-10 H, Ur Epithelial Cells FEW , Urine Hemoglobin MOD H, Urine Glucose NEG 06/28/16 0010: Urine Osmolality 528, Ur Random Creatinine 67.4, Ur Random Sodium 66, Ur Random Potassium 123.5, Fraction Sodium Excret 0.6 06/27/16 2305: Lactic Acid 1.7 06/27/16 2305: Anion Gap 13, Estimated GFR > 60, BUN/Creatinine Ratio 18.6, Glucose 126 H, Serum Osmolality 256 L, Calcium 10.6 H, Total Bilirubin 2.3 H, Direct Bilirubin 0.3, AST 34, ALT 33, Alkaline Phosphatase 98, Troponin I < 0.01, Total Protein 6.6, Albumin 4.3, Amylase 71, Lipase 153, 25-OH Vitamin D Total 22.9 L, PTH Intact 122.8 H, PT 12.4, INR 1.18, APTT 30, CBC w Diff MAN DIFF ORDERED, RBC 4.55, MCV 86.0, MCH 29.6, RDW 14.0, MPV 9.2, Gran % 88.7 H, Lymphocytes % 7.5 L, Monocytes % 1.9, Eosinophils % 0, Basophils % 1.9, Absolute Granulocytes 8.4 H, Absolute Lymphocytes 0.7 L, Absolute Monocytes 0.2, Absolute Eosinophils 0, Absolute Basophils 0.2, Platelet Estimate ADEQUATE, Normocytic RBCs VERIFIED, Normochromic RBCs VERIFIED, PUBS MCHC 34.4 Microbiology 06/28 022 STOOL: Clostridium difficile Toxin A & B - COLB 06/28 014 BLOOD: Blood Culture - RECD 06/28 013 BLOOD: Blood Culture - RECD 06/28 001 URINE ROUT: Urine Culture - RECD Impression/Plan: #Hyponatremia- Nephrology input appreciated. Concern that the Na has increased too rapidly. Plan: Agree with change IV fluids to D5w and other recommendations from Nephrology. Follow labs closely. #Gastroenteritis- nausea/vomiting/diarrhea- doing better. Plan: Will follow. C diff sent. #UTI- on Ceftriaxone. Afebrile. Plan: Await urine C&S. #Hypercalcemia/Elevated PTH- appreciate endocrinology input. Plan: As per Endo. #
[2016-06-28 23:23] VITALS: BP 110/58
--- NOTE | 2016-06-29 07:43 | PN- Housestaff ---
ANETTE COATES 06/29/16 0743: Subjective Follow-up For: UTI Hyponatremia Subjective: Patient seen and examined. Was eating breakfast. Feels well. The sodium corrected to 130 last night, and 135 this am she was continued of D5W. Probably patient is eating salt in diet. No new complains. Feels better Review of Systems Constitutional: Reports: see HPI. Objective Last 24 Hrs of Vital Signs/I&O Vital Signs Date Time Temp Pulse Resp B/P Pulse O2 O2 Flow FiO2 Ox Delivery Rate 06/29 0815 97.9 48 20 118/58 95 Room Air 06/28 2323 98.2 53 20 110/58 95 Room Air 06/28 1550 98.1 51 20 124/62 95 Room Air Intake & Output 06/29 1600 06/29 0800 06/29 0000 Intake Total 600 300 Output Total 1300 0 Balance -700 -1750 Intake, IV 600 300 Output, Urine 1300 2049 Physical Exam General Appearance: Alert, Oriented X3, Cooperative, No Acute Distress Skin: No Rashes, No Breakdown HEENT: Atraumatic Neck: Supple Cardiovascular: Regular Rate, Normal S1, Normal S2 Lungs: Clear to Auscultation, Normal Air Movement Abdomen: Normal Bowel Sounds, Soft, No Tenderness Extremities: No Edema, Normal Pulses Current Medications: Current Medications Sig/Jaime Start time Last Medication Dose Route Stop Time Status Admin Acetaminophen 650 MG Q6P PRN 06/28 0230 AC PO Aspirin 325 MG DAILY 06/28 1000 AC 06/28 PO 0939 Atorvastatin Calcium 20 MG DAILY 06/28 1000 AC 06/28 PO 0939 Ceftriaxone Sodium 1,000 MG DAILY 06/28 1000 AC 06/28 IV 0939 Dextrose/Water 1,000 ML Q13H 06/28 1730 AC 06/29 IV 0410 Enoxaparin Sodium 40 MG DAILY 06/28 1000 AC 06/28 SC 0939 Ondansetron HCl 4 MG Q6P PRN 06/28 0230 AC IV Patient Medication 1 ED .STK-MED ONE 06/28 1415 ND Teaching ED 06/28 1416 Sodium Chloride 1,000 ML Q10H 06/28 0215 DC 06/28 IV 1326 Last 24 Hrs of Lab/Fredrick Results Last 24 Hrs of Labs/Mics: Laboratory Tests 06/29/16 0638: Anion Gap 6, Estimated GFR > 60, BUN/Creatinine Ratio 13.8, CBC w Diff NO MAN DIFF REQ, RBC 4.00 L, MCV 85.8, MCH 30.3, RDW 14.1, MPV 9.7, Gran % 74.3, Lymphocytes % 17.4 L, Monocytes % 7.0, Eosinophils % 0.9, Basophils % 0.4, Absolute Granulocytes 3.1, Absolute Lymphocytes 0.7 L, Absolute Monocytes 0.3, Absolute Eosinophils 0, Absolute Basophils 0, PUBS MCHC 35.3 06/28/16 2037: Anion Gap 7, Estimated GFR 48 L, BUN/Creatinine Ratio 11.8, Uric Acid 4.0 06/28/16 1130: Anion Gap 10, Estimated GFR > 60, BUN/Creatinine Ratio 11.1 Assessment/Plan Assessment: Patient is 75 year female with PMH of HTN, HLD, S/P mitral valve repair, 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 She had several episodes of vomiting, first one was dark-colored followed by clear fluid. 3-4 episodes of watery diarrhea no black colored or red colored stools. She denies any abdominal cramping but complains of mild abdominal pain. But endorses urinary burning and irritation, feeling weak and lethargic, dizziness, chills. Labs on admission: CBC shows granulocyte 88% but WBC 9.5, sodium 119, chloride 84, creatinine 0.7, calcium 10.6, UA positive for ketone, nitrites, leukocyte esterase, urine osmolality 528, serum osmolality 256, total bilirubin 2.3, direct bilirubin 0.3, AST 34, ALT 33, albumin 4.3. CT abdomen and pelvis without IV contrast: No acute findings identified in the abdomen/pelvis. Splenomegaly. Status post left nephrectomy. Colonic diverticulosis. Problem list, assessment and Plan Hyponatremia: Hyponatremia was thought to be secondary to lasix and poor oral intake. 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 UC positive for gram negative rods. Urinary symptoms improved. Will continue IV ceftriaxone for now BC x 2 pending Vomiting and diarrhea: Most likely viral etiology for gastroenteritis, CT abdomen and pelvis unremarkable, patient get takes by mouth antibiotics for dental procedures last on 3 months back, C diff pending Patient's bilirubin is mildly elevated, Right upper quadrant negative, patient had cholecystectomy in the past. DVT prophylaxis with Lovenox Problem List: 1. Abdominal pain 2. Nausea and vomiting 3. Hyponatremia Pain Ratin Pain Location: none Pain Goal: Pain 4 or less Pain Plan: Tylenol for fever prn Tomorrow's Labs & Rationales: cbc bep PEDRITO RODRÍGUEZ MD 06/29/16 1712: Attending MD Review Statement Attending Statement Attending MD Statement: examined this patient, discuss w/resident/PA/TECHNICAL SALES ENGINEER, agreed w/resident/PA/TECHNICAL SALES ENGINEER, reviewed EMR data (avail), discussed with nursing, amended to note Attending Assessment/Plan: The patient was seen and discussed with house staff. Agree with plan of care as outlined. Monitor sodium closely as it has risen fast. Appreciate Nephrology input.
[2016-06-29 08:13] LABS: ABSOLUTE BASOPHIL COUNT 0 /CUMM (0.0-0.2); ABSOLUTE EOSINOPHIL COUNT 0 /CUMM (0.0-0.7); ABSOLUTE GRANULOCYTE CT 3.1 /CUMM (1.4-6.5); ABSOLUTE LYMPH COUNT 0.7 /CUMM (1.2-3.4); ABSOLUTE MONOCYTE COUNT 0.3 /CUMM (0.10-0.60); BASOPHIL % 0.4 % (0.0-2.0); EOSINOPHIL % 0.9 % (0-5); GRANULOCYTE % 74.3 % (42.2-75.2); HEMATOCRIT 34.3 % (37-47); MEAN CORPUSCULAR HGB 30.3 PG (27.0-31.0); MEAN CORPUSCULAR HGB CONC 35.3 G/DL (33.0-37.0); MEAN CORPUSCULAR VOLUME 85.8 FL (81.0-99.0); MEAN PLATELET VOLUME 9.7 FL (7.4-10.4); PLATELET COUNT 105 /CUMM (130-400); RBC DISTRIBUTION WIDTH 14.1 % (11.5-14.5)
[2016-06-29 08:15] VITALS: BP 118/58
[2016-06-29 08:30] LABS: WHITE BLOOD CELL COUNT 4.2 /CUMM (4.8-10.8)
--- NOTE | 2016-06-29 10:42 | PN- Endocrinology ---
Assessment/Plan Assessment: 75 old pleasant female with PMH significant for nephrectomy (with Dx of RCC in 2011), was brought into the ED by her neighbor due to several episode of vomiting and diarrhea since Tuesday morning. Patient was admitted for severe hyponatremia, mild hypercalcemia, elevated PTH and mild vitamin D deficiency. 1. Hypovalemic Hyponatremia is due to GI loss and HCTZ. Her Sodium level has improved after she started eating. IVF can be discontinued. 2. Her calcium level has been improving after patient was treated with IVF. ---recommend starting vitamin D 1000 units daily; ---monitor calcium, PTH and 25 OH vitamin D in 6-8 weeks as outpatient. Plan: As above. Subjective Subjective: Patient feels much better this morning. Objective Last 24 Hrs of Vital Signs/I&O Vital Signs Date Time Temp Pulse Resp B/P Pulse O2 O2 Flow FiO2 Ox Delivery Rate 06/29 0815 97.9 48 20 118/58 95 Room Air 06/28 2323 98.2 53 20 110/58 95 Room Air 06/28 1550 98.1 51 20 124/62 95 Room Air Intake & Output 06/29 1600 06/29 0800 06/29 0000 Intake Total 600 300 Output Total 1300 0 Balance -700 -1750 Intake, IV 600 300 Output, Urine 1300 2049 Results Pertinent Lab/Fredrick Results: Laboratory Tests 06/29 06/28 06/28 0638 2036 1130 Chemistry Sodium (137 - 145 mmol/L) 135 L 130 L 125 L Potassium (3.5 - 5.1 mmol/L) 3.8 3.7 4.4 Chloride (98 - 107 mmol/L) 103 97 L 91 L Carbon Dioxide (22 - 30 mmol/L) 26 26 24 Anion Gap (5 - 16) 6 7 10 BUN (7 - 17 mg/dL) 11 13 10 Creatinine (0.5 - 1.0 mg/dL) 0.8 1.1 H 0.9 Estimated GFR (>60 ml/min) > 60 48 L > 60 BUN/Creatinine Ratio (7 - 25 %) 13.8 11.8 11.1 Uric Acid (2.5 - 6.2 mg/dL) 4.0 Total Bilirubin (0.2 - 1.3 mg/dL) Pending Direct Bilirubin (< 0.4 mg/dL) Pending AST (14 - 36 U/L) Pending ALT (9 - 52 U/L) Pending Alkaline Phosphatase (<127 U/L) Pending Total Protein (6.3 - 8.2 g/dL) Pending Albumin (3.5 - 5.0 g/dL) Pending Hematology CBC w Diff NO MAN DIFF REQ WBC (4.8 - 10.8 /CUMM) 4.2 L RBC (4.20 - 5.40 /CUMM) 4.00 L Hgb (12.0 - 16.0 G/DL) 12.1 Hct (37 - 47 %) 34.3 L MCV (81.0 - 99.0 FL) 85.8 MCH (27.0 - 31.0 PG) 30.3 RDW (11.5 - 14.5 %) 14.1 Plt Count (130 - 400 /CUMM) 105 L MPV (7.4 - 10.4 FL) 9.7 Gran % (42.2 - 75.2 %) 74.3 Lymphocytes % (20.5 - 51.1 %) 17.4 L Monocytes % (1.7 - 9.3 %) 7.0 Eosinophils % (0 - 5 %) 0.9 Basophils % (0.0 - 2.0 %) 0.4 Absolute Granulocytes (1.4 - 6.5 /CUMM) 3.1 Absolute Lymphocytes (1.2 - 3.4 /CUMM) 0.7 L Absolute Monocytes (0.10 - 0.60 /CUMM) 0.3 Absolute Eosinophils (0.0 - 0.7 /CUMM) 0 Absolute Basophils (0.0 - 0.2 /CUMM) 0 PUBS MCHC (33.0 - 37.0 G/DL) 35.3
--- NOTE | 2016-06-29 13:12 | PN- Nephrology ---
Assessment/Plan Assessment: 1. Hyponatremia - suspect multifactorial but primarily related to volume contraction in a patient on a thiazide diuretic. Of note is the fact that she clearly exhibited a number of element suggestive of SIADH including a relatively low serum uric acid level. Correction of serum sodium turned out to occur a bit more quickly than one would like but she seems to be doing well. 2. Urinary tract infection Suggestion: 1. Discontinue IV fluids. 2. Consider switching to oral antibiotics. 3. Would avoid thiazides in the future but can restart NIRMAL inhibitor or ARB if needed 4. If chemistries okay tomorrow, consider discharge at that time. 5. She should have repeat electrolytes in 1-2 weeks as an outpatient; results can be sent to me and I will then be happy to follow-up if clinically indicated. Subjective Subjective: Ration serum sodium came up to 130 and then 135 this morning. Fortunately, she is feeling well and specifically denies headache, visual symptoms, dizziness, nausea or vomiting. She is being treated with IV antibiotics for symptoms of a UTI with gram-negative rods in her urine. Objective Vital Signs and I&Os Vital Signs Date Time Temp Pulse Resp B/P Pulse O2 O2 Flow FiO2 Ox Delivery Rate 06/29 0815 97.9 48 20 118/58 95 Room Air 06/28 2323 98.2 53 20 110/58 95 Room Air 06/28 1550 98.1 51 20 124/62 95 Room Air Intake & Output 06/29 1600 06/29 0400 06/28 1600 06/28 0400 06/27 1600 06/27 0400 Intake Total 600 814 989 2322 Output Total 1300 2050 1550 Balance -700 -1750 -1150 1000 Intake, IV 600 229 866 3757 Intake, Oral 0 Number 0 Bowel Movements Output, Urine 1300 2049 1550 Patient 134 lb Weight Physical Exam: General: Well-developed, pleasant white female in NAD Skin: No rash or jaundice HEENT: Conjunctivae pink, sclerae anicteric, mucous membranes moist Neck: Without masses or thyromegaly, no supraclavicular or cervical adenopathy Chest: Clear to P&A Heart: Regular rate and rhythm without S3 or rub Abdomen: Soft and nontender without palpable masses or organomegaly Extremities: Without cyanosis or edema Neuro: No focal findings, no asterixis or myoclonus Current Medications: Current Medications Sig/Jaime Start time Last Medication Dose Route Stop Time Status Admin Acetaminophen 650 MG Q6P PRN 06/28 0230 AC PO Aspirin 325 MG DAILY 06/28 1000 AC 06/29 PO 1015 Atorvastatin Calcium 20 MG DAILY 06/28 1000 AC 06/29 PO 1015 Ceftriaxone Sodium 1,000 MG DAILY 06/28 1000 AC 06/29 IV 1016 Cholecalciferol 1,000 IU DAILY 06/29 1045 AC 06/29 PO 1215 Dextrose/Water 1,000 ML Q13H 06/28 1730 DC 06/29 IV 0410 Enoxaparin Sodium 40 MG DAILY 06/28 1000 AC 06/29 SC 1015 Ondansetron HCl 4 MG Q6P PRN 06/28 0230 AC IV Patient Medication 1 ED .STK-MED ONE 06/28 1415 AK Teaching ED 06/28 1416 Sodium Chloride 1,000 ML Q10H 06/28 0215 AK 06/28 IV 1326 Results Pertinent Lab Results: Laboratory Tests 06/29 06/28 06/28 06/28 0638 2037 1130 0700 Chemistry Sodium (137 - 145 mmol/L) 135 L 130 L 125 L 120 L Potassium (3.5 - 5.1 mmol/L) 3.8 3.7 4.4 3.4 L Chloride (98 - 107 mmol/L) 103 97 L 91 L 91 L Carbon Dioxide (22 - 30 mmol/L) 26 26 24 22 Anion Gap (5 - 16) 6 7 10 8 BUN (7 - 17 mg/dL) 11 13 10 10 Creatinine (0.5 - 1.0 mg/dL) 0.8 1.1 H 0.9 0.7 Estimated GFR (>60 ml/min) > 60 48 L > 60 > 60 BUN/Creatinine Ratio (7 - 25 %) 13.8 11.8 11.1 14.3 Uric Acid (2.5 - 6.2 mg/dL) 4.0 3.0 Calcium (8.4 - 10.2 mg/dL) 9.3 Total Bilirubin (0.2 - 1.3 mg/dL) 0.5 1.4 H Direct Bilirubin (< 0.4 mg/dL) 0.3 0.4 AST (14 - 36 U/L) 28 26 ALT (9 - 52 U/L) 27 26 Alkaline Phosphatase (<127 U/L) 69 68 Total Protein (6.3 - 8.2 g/dL) 5.0 L 5.0 L Albumin (3.5 - 5.0 g/dL) 3.0 L 3.0 L Cortisol AM Sample (4.46 - 22.7 ug/dL) 18.5 Hematology CBC w Diff NO MAN DIFF REQ WBC (4.8 - 10.8 /CUMM) 4.2 L RBC (4.20 - 5.40 /CUMM) 4.00 L Hgb (12.0 - 16.0 G/DL) 12.1 Hct (37 - 47 %) 34.3 L MCV (81.0 - 99.0 FL) 85.8 MCH (27.0 - 31.0 PG) 30.3 RDW (11.5 - 14.5 %) 14.1 Plt Count (130 - 400 /CUMM) 105 L MPV (7.4 - 10.4 FL) 9.7 Gran % (42.2 - 75.2 %) 74.3 Lymphocytes % (20.5 - 51.1 %) 17.4 L Monocytes % (1.7 - 9.3 %) 7.0 Eosinophils % (0 - 5 %) 0.9 Basophils % (0.0 - 2.0 %) 0.4 Absolute Granulocytes (1.4 - 6.5 /CUMM) 3.1 Absolute Lymphocytes (1.2 - 3.4 /CUMM) 0.7 L Absolute Monocytes (0.10 - 0.60 /CUMM) 0.3 Absolute Eosinophils (0.0 - 0.7 /CUMM) 0 Absolute Basophils (0.0 - 0.2 /CUMM) 0 PUBS MCHC (33.0 - 37.0 G/DL) 35.3 06/28 06/28 06/28 0600 0340 0136 Chemistry Sodium (137 - 145 mmol/L) 119 *L Potassium (3.5 - 5.1 mmol/L) 3.6 Chloride (98 - 107 mmol/L) 90 L Carbon Dioxide (22 - 30 mmol/L) 23 Anion Gap (5 - 16) 6 BUN (7 - 17 mg/dL) 11 Creatinine (0.5 - 1.0 mg/dL) 0.7 Estimated GFR (>60 ml/min) > 60 BUN/Creatinine Ratio (7 - 25 %) 15.7 Lactic Acid (0.7 - 2.1 mmol/L) 0.9 TSH (0.270 - 4.200 uIU/mL) 0.775 Free T4 (0.78 - 2.44 ng/dL) 1.05 PTH Intact (13.8 - 85 pg/ml) Cancelled 144.4 H 06/28 06/28 06/27 0010 0010 2305 Chemistry Lactic Acid (0.7 - 2.1 mmol/L) 1.7 Urines Urine Color (YEL,AMB,STR) YEL Urine Clarity (CLEAR) CLDY H Urine pH (5.0 - 8.0) 7.5 Ur Specific [place] (1.001 - 1.035) 1.015 Urine Protein (NEG,<30 MG/DL) NEG Urine Ketones (NEG) 40 H Urine Nitrite (NEG) POS H Urine Bilirubin (NEG) NEG Urine Urobilinogen (0.1 - 1.0 EU/dl) 0.2 Ur Leukocyte Esterase (NEG) MOD H Ur Microscopic SEDIMENT EXAMINED Urine RBC (0 - 5 /HPF) 5-10 H Urine WBC (0 - 2 /HPF) 5-10 H Ur Epithelial Cells (NONE,FEW) FEW Urine Hemoglobin (NEG) MOD H Urine Osmolality (300 - 1000 MOSM/KG) 528 Ur Random Creatinine (mg/dL) 67.4 Ur Random Sodium (30 - 90 mmol/L) 66 Ur Random Potassium (mmol/L) 123.5 Fraction Sodium Excret (<1% %) 0.6 Urine Glucose (N MG/DL) NEG 06/27 2305 Chemistry Sodium (137 - 145 mmol/L) 119 *L Potassium (3.5 - 5.1 mmol/L) 3.7 Chloride (98 - 107 mmol/L) 84 L Carbon Dioxide (22 - 30 mmol/L) 22 Anion Gap (5 - 16) 13 BUN (7 - 17 mg/dL) 13 Creatinine (0.5 - 1.0 mg/dL) 0.7 Estimated GFR (>60 ml/min) > 60 BUN/Creatinine Ratio (7 - 25 %) 18.6 Glucose (65 - 99 mg/dL) 126 H Serum Osmolality (285 - 295 MOSM/KG) 256 L Calcium (8.4 - 10.2 mg/dL) 10.6 H Total Bilirubin (0.2 - 1.3 mg/dL) 2.3 H Direct Bilirubin (< 0.4 mg/dL) 0.3 AST (14 - 36 U/L) 34 ALT (9 - 52 U/L) 33 Alkaline Phosphatase (<127 U/L) 98 Troponin I (< 0.11 ng/ml) < 0.01 Total Protein (6.3 - 8.2 g/dL) 6.6 Albumin (3.5 - 5.0 g/dL) 4.3 Amylase (30 - 110 U/L) 71 Lipase (23 - 300 U/L) 153 25-OH Vitamin D Total (30 - 100 ng/ml) 22.9 L PTH Intact (13.8 - 85 pg/ml) 122.8 H Coagulation PT (9.4 - 12.5 SEC) 12.4 INR (0.90 - 1.19) 1.18 APTT (25 - 37 SEC) 30 Hematology CBC w Diff MAN DIFF ORDERED WBC (4.8 - 10.8 /CUMM) 9.5 RBC (4.20 - 5.40 /CUMM) 4.55 Hgb (12.0 - 16.0 G/DL) 13.5 Hct (37 - 47 %) 39.2 MCV (81.0 - 99.0 FL) 86.0 MCH (27.0 - 31.0 PG) 29.6 RDW (11.5 - 14.5 %) 14.0 Plt Count (130 - 400 /CUMM) 164 MPV (7.4 - 10.4 FL) 9.2 Gran % (42.2 - 75.2 %) 88.7 H Lymphocytes % (20.5 - 51.1 %) 7.5 L Monocytes % (1.7 - 9.3 %) 1.9 Eosinophils % (0 - 5 %) 0 Basophils % (0.0 - 2.0 %) 1.9 Absolute Granulocytes (1.4 - 6.5 /CUMM) 8.4 H Absolute Lymphocytes (1.2 - 3.4 /CUMM) 0.7 L Absolute Monocytes (0.10 - 0.60 /CUMM) 0.2 Absolute Eosinophils (0.0 - 0.7 /CUMM) 0 Absolute Basophils (0.0 - 0.2 /CUMM) 0.2 Platelet Estimate (ADEQUATE) ADEQUATE Normocytic RBCs VERIFIED Normochromic RBCs VERIFIED PUBS MCHC (33.0 - 37.0 G/DL) 34.4
--- NOTE | 2016-06-29 14:49 | Patient Discharge Instructions ---
See Addendum Discharge Instructions General Discharge Information Special Instructions: repeat electrolytes in 1-2 weeks as an outpatient; results can be sent to me and I will then be happy to follow-up if clinically indicated. Acute Coronary Syndrome Inclusion Criteria At DC or during hospital stay patient has or had the following: ACS DIAGNOSIS No Discharge Core Measures Meds if any: Prescribed or Continued at Discharge Meds if any: NOT Prescribed or Continued at Discharge Congestive Heart Failure Inclusion Criteria At DC or during hospital stay patient has or had the following: CHF DIAGNOSIS No Discharge Core Measures Meds if any: Prescribed or Continued at Discharge Meds if any: NOT Prescribed or Continued at Discharge Cerebrovascular accident Inclusion Criteria At DC or during hospital stay patient has or had the following: CVA/TIA Diagnosis No Discharge Core Measures Meds if any: Prescribed or Continued at Discharge Meds if any: NOT Prescribed or Continued at Discharge Venous thromboembolism Inclusion Criteria VTE Diagnosis No VTE Type NONE VTE Confirmed by (Test) NONE Discharge Core Measures - Per Current guidelines, there needs to be overlap - treatment for the first 5 days of Warfarin therapy. - If discharged on Warfarin prior to 5 days of - overlap therapy, the patient will need to be - assessed for post discharge needs including - *Post discharge parental anticoagulation - *Warfarin and/or parental anticoagulation education - *Follow up date to check INR post discharge At least 5 days overlap therapy as Inpatient No Meds if any: Prescribed or Continued at Discharge Note: Overlap Therapy is Warfarin and Anticoagulant Meds if any: NOT Prescribed or Continued at Discharge
[2016-06-29 16:00] VITALS: BP 124/60
[2016-06-29] MEDS ORDERED: BENAZEPRIL HCL20 MG PO (17:55)
[2016-06-29 23:40] VITALS: BP 146/78
[2016-06-30 08:23] LABS: ABSOLUTE BASOPHIL COUNT 0 /CUMM (0.0-0.2); ABSOLUTE EOSINOPHIL COUNT 0.1 /CUMM (0.0-0.7); ABSOLUTE GRANULOCYTE CT 2.2 /CUMM (1.4-6.5); ABSOLUTE MONOCYTE COUNT 0.3 /CUMM (0.10-0.60); BASOPHIL % 0.3 % (0.0-2.0); EOSINOPHIL % 1.8 % (0-5); HEMATOCRIT 35.5 % (37-47); MEAN CORPUSCULAR HGB 29.8 PG (27.0-31.0); MEAN CORPUSCULAR HGB CONC 34.6 G/DL (33.0-37.0); MEAN CORPUSCULAR VOLUME 86.2 FL (81.0-99.0); MEAN PLATELET VOLUME 9.1 FL (7.4-10.4); PLATELET COUNT 104 /CUMM (130-400); RBC DISTRIBUTION WIDTH 13.8 % (11.5-14.5); RED BLOOD CELL CT 4.12 /CUMM (4.20-5.40); WHITE BLOOD CELL COUNT 3.6 /CUMM (4.8-10.8)
--- NOTE | 2016-06-30 08:39 | PN- Housestaff ---
MARY WEAVER,PENNY 06/30/16 0838: Subjective Follow-up For: Hyponatremia UTI Complaints: no complaints Subjective: She is comfortable without any complaints. She wants to know whether she could be discharged today. No n/v/abdominal pain, dysuria, diarrhea. Review of Systems Constitutional: Denies: chills, fever, weakness. EENTM: Reports: no symptoms. Cardiovascular: Denies: chest pain, edema, palpitations, peripheral edema. Respiratory: Denies: cough, short of breath, sputum production, wheezing. Gastrointestinal: Denies: abdominal pain, diarrhea, nausea, vomiting. Genitourinary: Denies: dysuria, frequency, urgency. Musculoskeletal: Reports: no symptoms. Skin: Reports: no symptoms. Neurological/Psychological: Reports: no symptoms. Hematologic/Endocrine: Reports: no symptoms. Objective Last 24 Hrs of Vital Signs/I&O Vital Signs Date Time Temp Pulse Resp B/P Pulse O2 O2 Flow FiO2 Ox Delivery Rate 06/30 0909 150/80 06/30 0851 98.7 54 18 150/80 95 Room Air 06/29 2340 97.8 60 18 146/78 96 Room Air 06/29 1600 97.4 54 20 124/60 95 Room Air Intake & Output 06/30 1600 06/30 0800 06/30 0000 Intake Total 300 200 Output Total Balance 300 200 Intake, Oral 300 200 Physical Exam General Appearance: Alert, Oriented X3, Cooperative, No Acute Distress Skin: No Rashes, No Breakdown, No Significant Lesion HEENT: Atraumatic, PERRLA, EOMI, Mucous Membr. moist/pink Neck: Supple, No JVD, No thryomegaly, No LAD Lymphatic: Cervical nl Cardiovascular: Regular Rate, Normal S1, Normal S2, No Murmurs Lungs: Clear to Auscultation, Normal Air Movement Abdomen: Normal Bowel Sounds, Soft, No Tenderness Neurological: Normal Speech, Strength at 5/5 X4 Ext, Normal Tone, Sensation Intact Extremities: No Edema, Normal Pulses, No Tenderness/Swelling Vascular: Normal Pulses, Pulses Symmetrical Current Medications: Current Medications Sig/Jaime Start time Last Medication Dose Route Stop Time Status Admin Acetaminophen 650 MG Q6P PRN 06/28 0230 AC PO Aspirin 325 MG DAILY 06/28 1000 AC 06/30 PO 0908 Atorvastatin Calcium 20 MG DAILY 06/28 1000 AC 06/30 PO 0908 Ceftriaxone Sodium 1,000 MG DAILY 06/28 1000 AC 06/30 IV 0908 Cholecalciferol 1,000 IU DAILY 06/29 1045 AC 06/30 PO 0908 Enoxaparin Sodium 40 MG DAILY 06/28 1000 AC 06/30 SC 0908 Lisinopril 20 MG DAILY 06/30 1000 AC 06/30 PO 0909 Ondansetron HCl 4 MG Q6P PRN 06/28 0230 AC IV Last 24 Hrs of Lab/Fredrick Results Last 24 Hrs of Labs/Mics: Laboratory Tests 06/30/16 0745: Anion Gap 9, Estimated GFR > 60, BUN/Creatinine Ratio 11.3, CBC w Diff NO MAN DIFF REQ, RBC 4.12 L, MCV 86.2, MCH 29.8, RDW 13.8, MPV 9.1, Gran % 63.0, Lymphocytes % 27.4, Monocytes % 7.5, Eosinophils % 1.8, Basophils % 0.3, Absolute Granulocytes 2.2, Absolute Lymphocytes 1.0 L, Absolute Monocytes 0.3, Absolute Eosinophils 0.1, Absolute Basophils 0, PUBS MCHC 34.6 Assessment/Plan Assessment: Patient is 75 year female with PMH of HTN, HLD, S/P mitral valve repair, 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 She had several episodes of vomiting, first one was dark-colored followed by clear fluid. 3-4 episodes of watery diarrhea no black colored or red colored stools. She denies any abdominal cramping but complains of mild abdominal pain. But endorses urinary burning and irritation, feeling weak and lethargic, dizziness, chills. Labs on admission: CBC shows granulocyte 88% but WBC 9.5, sodium 119, chloride 84, creatinine 0.7, calcium 10.6, UA positive for ketone, nitrites, leukocyte esterase, urine osmolality 528, serum osmolality 256, total bilirubin 2.3, direct bilirubin 0.3, AST 34, ALT 33, albumin 4.3. CT abdomen and pelvis without IV contrast: No acute findings identified in the abdomen/pelvis. Splenomegaly. Status post left nephrectomy. Colonic diverticulosis. Problem list, assessment and Plan Hyponatremia: Hyponatremia was thought to be secondary to lasix and poor oral intake. Serum osmolarity was Urine osmolarity was 526, Plasma osmolality 258 could be a component of SIADH Nephrology consult was obtained from Dr. Reis, and she'll follow up after discharge. Na was corrected to 138. Continue to hold HCTZ, and check BEP in 1 week. E.coli UTI: Patient has symptoms of burning and irritation urine along with UA positive for UTI. UC positive for gram negative rods. Urinary symptoms improved. IV ceftriaxone will be switched to po antibiotics pending sensitivity -> E.coli sensitive to amoxicillin. Will give 2 more days of antibiotics. Vomiting and diarrhea: Most likely viral etiology for gastroenteritis, CT abdomen and pelvis unremarkable, patient get takes by mouth antibiotics for dental procedures last on 3 months back, C diff was not available as she stopped having diarrhea durign admission. Elevated bilirubin, Resolved. CT abd/pelvis was unremarkable; No biliary ductal dilatation is present. The gallbladder is unremarkable with no evidence of radiopaque gallstones, gallbladder wall thickening, or obvious pericholecystic inflammatory changes. DVT prophylaxis with Lovenox Problem List: 1. Hyponatremia 2. Urinary tract infection Pain Ratin Pain Location: NA Pain Goal: Pain 4 or less Pain Plan: Tyrenol prn Tomorrow's Labs & Rationales: D/C today DVT/Prophylaxis: pharmacological Consulting Request: Consulting Specialty: Nephrology Consulting Physician: Dr. Reis Reason for Consult: Hyponatremia Discharge Plan Discharge Disposition: home Stable for Discharge? Yes Anticipated Discharge (Day): today PEDRITO RODRÍGUEZ MD 06/30/16 2848: Attending MD Review Statement Attending Statement Attending MD Statement: examined this patient, discuss w/resident/PA/MORTGAGE LOAN PROCESSOR, agreed w/resident/PA/MORTGAGE LOAN PROCESSOR, reviewed EMR data (avail), discussed with nursing, discussed with case mgmt, amended to note Attending Assessment/Plan: The patient was seen and discussed with house staff. Agree with the plan of care. OK to discharge today.
[2016-06-30 08:51] VITALS: BP 150/80
--- NOTE | 2016-06-30 13:04 | NUR ---
Received call from RN as pt asking for list of foods that are good sources of vit D. Pt walking outside of room, unable to find. Diet information left at bedside and also left low Na diet information with RD contact information. Notified RN of above, thank you.
[2016-06-30] MEDS ORDERED: AMOXICILLIN875 M1 PO (13:26)
--- NOTE | 2016-06-30 14:05 | Discharge Summary ---
Visit Information Visit Dates Admission Date: 06/28/16 Discharge Date: 06/30/16 Hospital Course Course Attending Physician: PEDRITO RODRÍGUEZ MD Primary Care Physician: VAN WEAVER,YAW Rod Other Care Providers: Dr. Lynda Rogers, cardiology [facility] Dr. Jacek Dean, nephrology [facility] Consulting Request: 1 Consulting Specialty: Nephrology Consulting Physician: Dr. 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 She started having nausea and vomiting after having left over pasta with marinara sauce on the night before. She had several episodes of vomiting, first one was dark-colored followed by clear fluid. She also had 3-4 episodes of watery diarrhea without black/or red colored stools resulting dehydration and weakness. She had not been eating anything since vomiting started. She denied any abdominal cramping but complains of mild abdominal pain. She endorsed urinary burning and irritation, feeling weak and lethargic with dizziness and chills. She also reported one episode of hematuria which was resolved. At baseline, she lives at home by herself and is independent of daily activity. She is following with ladder operator Dr. Lynda Rogers and child day care provider Dr. Jacek Dean at [facility]. Initial V/S: 98.3F ME 60 RR 28 BP 162/78 97% on RA General Appearance Alert, Oriented X3, Cooperative, No Acute Distress, anxious Skin No Rashes, No Breakdown, No Significant Lesion HEENT Atraumatic, PERRLA, EOMI, dry mucous membranes Neck Supple, No JVD Cardiovascular Regular Rate, Normal S1, Normal S2 Lungs Clear to Auscultation, Normal Air Movement Abdomen Normal Bowel Sounds, Soft, No Tenderness Neurological Normal Speech, Strength at 5/5 X4 Ext, Normal Tone, Sensation Intact, Cranial Nerves 3-12 NL Extremities No Clubbing, No Cyanosis, No Edema, Normal Pulses Vascular Normal Pulses, Pulses Symmetrical Labs: WBC 9.5 Hb/Hct 13.5/39.2 Plt 164 Na 119 K 3.7 BUN/Cr 13/0.7, total bilirubin 2.3, direct bilirubin 0.3, AST 34, ALT 33, albumin 4.3, Serum Osm 256 Ca 10.6 Vit D 22.9 PTH 122.8, UA positive for ketone, nitrites, leukocyte esterase, RBC 5-10, WBC 5-10, mod hemoglobin, urine osmolality 528, urine Cr 67.4, urine Na 66, urine potassium 123.5, FeNa 0.6% CT Abdoment/Pelvis: 1. No acute findings identified in the abdomen/pelvis. 2. Splenomegaly. 3. Status post left nephrectomy. 4. Colonic diverticulosis. Patient was admitted to general medicine floor for following problem lists; 1. Hyponatremia: Hypotonic hyponatremia with hypovolemic examination. Likely secondary to GI volume loss with vomiting/diarrhea combined with HCTZ use. Her baseline Na in 2013 was 142. She was unaware of any previous history of hyponatremia. She was given IV normal saline with close monitoring of Na/neurochecks every 4 hours. She denied any headache or visual symptoms. HCTZ/NIRMAL inhibitor was held. Nephrology consult was obtained from Dr. Reis. Her sodium increased with IV normal saline with normal kidney function (Cr 0.7-0.9). Further evaluation thus revealed a high urine sodium and osmolality, normal TSH and a.m. cortisol levels. As her kidney function remained normal despite volume depletion and Lt. 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 IV fluid was changed to D5W with rapid rising of Na. Sodium was increased to 138 on 06/30. NIRMAL inhibitor was restarted. She needs to repeat electrolytes in 1-2 weeks as an outpatient and follow up Dr. Reis. 2. E.coli UTI: Patient has symptoms of burning and irritation urine along with UA positive for UTI. She was empirically treated with IV ceftriaxone. Later urine Culcutre was positive for E c.luana sensitive to amoxicillin. IV ceftriaxone was switched to po augmentin to complete the antibiotic course. 3. Vomiting and diarrhea: Most likely viral etiology for gastroenteritis. The patient remained afebrile without leukocytosis. CT abdomen and pelvis was unremarkable. Patient had po antibiotics for dental procedures 3 months ago. However, she stopped having diarrhea after admission, and C diff was not sent. 4. Hypercalcemia: She had mild hypercalcemia, elevated PTH, and mild Vit D deficiency. Endocrinology consult was obtained. Initial calcium level has been improving after patient was treated with IVF (10.6 -> 9.3). With low Vit D level of 22.9, it was recommended to start vitamin D 1000 units daily; It was recommended to monitor calcium, PTH and 25 OH vitamin D in 6-8 weeks as outpatient. 5. Hypertension: HCTZ/NIRMAL inhibitors were held initially, and only ACEinhibitor was resumed later. Please follow up with your primary doctor/ladder operator regarding medication adjustment. 6. Hyperlipidemia: We continued home dose of statin. 7. Elevated bilirubin, Resolved : CT abd/pelvis was unremarkable; No biliary ductal dilatation is present. The gallbladder is unremarkable with no evidence of radiopaque gallstones, gallbladder wall thickening, or obvious pericholecystic inflammatory changes. Repeat LFT with total/direct bilirubins were within normal limite after IV hydration. DVT prophylaxis with Lovenox Full code Allergies: Coded Allergies: No Known Allergies (06/27/16) Disposition Summary Disposition Principal Diagnosis: Hyponatremia E.coli urinary tract infection Viral gastroenteritis Hypercalcemia Elevated bilirubin, resolved Additional Diagnosis: HTN HLD s/p Lt. nephrectomy due to RCC s/p mitral valve repair Discharge Disposition: home or self care Discharge Instructions General Discharge Information Code Status: Full Code Patient's Diet: Regular diet, liberalize salt intake Patient's Activity: Increase as tolerated Follow-Up Instructions/Appts: 1. Please follow up with your primary doctor within 1 week after discharge 2. Please follow up with Dr. Reis for hyponatremia within 1-2 weeks after discharge. Please do blood work(BEP) on 07/07 before seeing a doctor. 3. Please follow up with your primary doctor/ladder operator for high blood pressure medication adjustment. HCTZ was held in the hosital due to hyponatremia. 4. Please continue vitamin D 1000 units daily and monitor calcium, PTH and 25 OH vitamin D in 6-8 weeks with your primary doctor Medications at Discharge Discharge Medications: Stop taking the following medications: Benazepril/Hydrochlorothiazide (Benazepril-Hctz 20-12.5 MG Tab) 20 MG-12.5 MG TABLET ORAL DAILY Continue taking these medications: Aspirin (Aspirin*) 325 MG TABLET 1 Tablet ORAL DAILY Comments: LAST DOSE GIVEN 06/30/16 AT 10:00AM Atenolol (Atenolol) 25 MG TABLET 1 Tablet ORAL DAILY Comments: NOT GIVEN WHILE HOSPITALIZED Atorvastatin Calcium (Lipitor) 20 MG TABLET 1 Tablet ORAL DAILY Comments: LAST DOSE GIVEN 06/30/16 AT 10:00 AM Start taking the following new medications: Benazepril HCl (Benazepril HCl) 20 MG TABLET 1 Tablet ORAL DAILY Qty = 30 No Refills Comments: LISINOPRIL GIVEN WHILE HOSPITALIZED, LAST DOSE GIVEN 06/30/16 AT 10:00 AM Amoxicillin (Amoxicillin) 875 MG TABLET 1 Tablet ORAL TWICE DAILY Qty = 4 No Refills Copies To: MATTHEW WEAVER,LYNDA; VAN WEAVER,YAW Rod; PEDRITO RODRÍGUEZ MD; KIRSTIN WEAVER,JACEK Cruz; BRENDAN WEAVER,JUAN Mejia Attending MD Review Statement Documenting Attending: PEDRITO RODRÍGUEZ MD Other Findings: The patient was seen and agree with plan of care upon discharge.
[2016-06-30 16:00] VITALS: BP 128/68
== END 2016-06-30 17:00 | DRG 641 ==
LOC: ENRESERVTM → ENRESERVDT → ERH 22:38 → ENPENDDIS 06-28 00:52 → 2NB 06-28 00:52 → ERHI 06-28 00:52 → 2NB 06-28 02:25
PROVIDERS: Internal Medicine; Pediatrics; ADMIT Internal Medicine
DX: E87.1 Hypo-osmolality and hyponatremia (principal); N39.0 Urinary tract infection, site not specified; E83.52 Hypercalcemia; K52.9 Noninfective gastroenteritis and colitis, unspecified; B96.20 Unspecified Escherichia coli [E. coli] as the cause of diseases classified elsewhere
CPT/HCPCS: 2NBSP; 84133; 84300; 36415; 74176; 81001; 82436; 82570; 87040; 87086; 93005; 93010; 96374; 96375; 97116-GO; 97161-GP; 97530-GO; J0696; J1650; J2405; J7060